=== PATIENT | male | born 1965 | race Caucasian/White ===

== ENCOUNTER 2018-06-01 19:11 | Emergency (ER) | payer SELFPAY ==
[~2018-06-01] VITALS: Ht 193 cm; Wt 122.5 kg
[~2018-06-01 19:11] MED LIST: LISI10TA2 PO; SULF1TAB35 PO
[2018-06-01] MEDS ORDERED: meTOprolol TARTRATE 50 MG (LOPRESSOR) TAB PO ONE (21:15)
--- NOTE | 2018-06-01 21:15 | ED General ---
General Chief Complaint: Cardiac/General Problems Stated Complaint: RASH Source of Information: Patient Exam Limitations: No Limitations History of Present Illness Date Seen by Provider: Jun 01, 2018 Time Seen by Provider: 21:12 Initial Comments To ER with reports of an itchy rash for 2 days to bilateral lower extremities and upper extremity. This rash is from the knees to the ankles. Does not extend proximal or distal to this. He has a bit of itchy linear rash on his abdomen and the dorsal aspect of his forearms. This began 2 days ago after finishing and being out in the brush. However during triage she was noted to be hypertensive at 212/135 and tachycardic sinus rhythm with a rate of 105. He denies any pain. He does report intermittent hematuria as well. He has a history of sepsis from urinary tract infection and is concerned he might be septic given the bloody urine. Timing/Duration: 1-2 Days Severity: Moderate Allergies and Home Medications Allergies Coded Allergies: No Known Drug Allergies (Unverified , 10/02/15) Home Medications Ciprofloxacin HCl 500 Mg Tablet, 500 MG PO BID Prescribed by: HILLARY OCAMPO on 06/01/182217 Lisinopril 10 Mg Tablet, 10 MG PO DAILY, (Reported) Metoprolol Succinate 50 Mg Tab.er.24h, 50 MG PO DAILY Prescribed by: HILLARY OCAMPO on 06/01/182217 Prednisone 20 Mg Tab, 40 MG PO DAILY Take 3 tabs(60mg)daily, decrease by 1/2 tab(10mg)daily. Prescribed by: HILLARY OCAMPO on 06/01/182217 Patient Home Medication List Home Medication List Reviewed: Yes Review of Systems Review of Systems Constitutional: see HPI; No chills, No fever EENTM: see HPI Respiratory: see HPI; No dyspnea on exertion, No short of breath Cardiovascular: no symptoms reported Genitourinary: see HPI, hematuria; No pain Musculoskeletal: no symptoms reported Skin: see HPI Psychiatric/Neurological: No Symptoms Reported Hematologic/Lymphatic: No Symptoms Reported Immunological/Allergic: no symptoms reported Past Jptyaov-Ktqqql-Xzhjlz Hx Past Medical History Hypertension Reproductive Disorders: No Family Medical History No Pertinent Family Hx Physical Exam Vital Signs Vital Signs - First Documented 06/01/18 20:58 Temp 97.2 Pulse 98 Resp 22 B/P (MAP) 222/125 (157) Pulse Ox 97 O2 Delivery Room Air Capillary Refill : Height, Weight, BMI Height: 6'4" Weight: 240lbs. oz. 108.398590qd; BMI Method: General Appearance: No Apparent Distress, WD/WN Eyes: Bilateral Eye Normal Inspection, Bilateral Eye PERRL, Bilateral Eye EOMI HEENT: PERRL/EOMI, TMs Normal Neck: Full Range of Motion, Normal Inspection Respiratory: Normal Breath Sounds, No Accessory Muscle Use, No Respiratory Distress Cardiovascular: Regular Rate, Rhythm, Normal Peripheral Pulses Gastrointestinal: Normal Bowel Sounds, Non Tender, Soft Extremity: Normal Capillary Refill, Other (erythematous linear papular rash to bilateral lower extremities from the knees to the ankles. Not distal or proximal to this. He has a similar appearing rash to the upper arms from the mid upper arm distally and to the abdomen. There is no rash on the face of the back. This does appear to be consistent with poison regina.) Neurologic/Psychiatric: Alert, Oriented x3, No Motor/Sensory Deficits Skin: Normal Color, Warm/Dry Progress/Results/Core Measures Suspected Sepsis SIRS Temperature: Pulse: Respiratory Rate: Laboratory Tests 06/01/18 21:02: White Blood Count 6.6 Blood Pressure / Mean: Laboratory Tests 06/01/18 21:02: Creatinine 1.02, Platelet Count 273, Total Bilirubin 0.4 Results/Orders Lab Results Laboratory Tests Test 06/01/18 21:02 06/01/18 21:35 Range/Units White Blood Count 6.6 4.3-11.0 10^3/uL Red Blood Count 4.82 4.35-5.85 10^6/uL Hemoglobin 14.4 13.3-17.7 G/DL Hematocrit 43 40-54 % Mean Corpuscular Volume 88 80-99 FL Mean Corpuscular Hemoglobin 30 25-34 PG Mean Corpuscular Hemoglobin Concent 34 32-36 G/DL Red Cell Distribution Width 14.2 10.0-14.5 % Platelet Count 273 130-400 10^3/uL Mean Platelet Volume 9.6 7.4-10.4 FL Neutrophils (%) (Auto) 47 42-75 % Lymphocytes (%) (Auto) 29 12-44 % Monocytes (%) (Auto) 15 H 0-12 % Eosinophils (%) (Auto) 8 0-10 % Basophils (%) (Auto) 1 0-10 % Neutrophils # (Auto) 3.1 1.8-7.8 X 10^3 Lymphocytes # (Auto) 1.9 1.0-4.0 X 10^3 Monocytes # (Auto) 1.0 0.0-1.0 X 10^3 Eosinophils # (Auto) 0.5 H 0.0-0.3 10^3/uL Basophils # (Auto) 0.1 0.0-0.1 10^3/uL Sodium Level 139 135-145 MMOL/L Potassium Level 3.3 L 3.6-5.0 MMOL/L Chloride Level 107 98-107 MMOL/L Carbon Dioxide Level 21 21-32 MMOL/L Anion Gap 11 5-14 MMOL/L Blood Urea Nitrogen 16 7-18 MG/DL Creatinine 1.02 0.60-1.30 MG/DL Estimat Glomerular Filtration Rate > 60 BUN/Creatinine Ratio 16 Glucose Level 88 70-105 MG/DL Calcium Level 9.6 8.5-10.1 MG/DL Corrected Calcium 9.5 8.5-10.1 MG/DL Total Bilirubin 0.4 0.1-1.0 MG/DL Aspartate Amino Transf (AST/SGOT) 50 H 5-34 U/L Alanine Aminotransferase (ALT/SGPT) 72 H 0-55 U/L Alkaline Phosphatase 74 40-136 U/L Troponin I < 0.30 <0.30 NG/ML B-Type Natriuretic Peptide 57.3 <100.0 PG/ML Total Protein 7.9 6.4-8.2 GM/DL Albumin 4.1 3.2-4.5 GM/DL Urine Color OTHER H Urine Clarity VERY CLOUDY H Urine pH 6 5-9 Urine Specific [place] 1.015 L 1.016-1.022 Urine Protein 3+ H NEGATIVE Urine Glucose (UA) NEGATIVE NEGATIVE Urine Ketones NEGATIVE NEGATIVE Urine Nitrite NEGATIVE NEGATIVE Urine Bilirubin NEGATIVE NEGATIVE Urine Urobilinogen NORMAL NORMAL MG/DL Urine Leukocyte Esterase 3+ H NEGATIVE Urine RBC (Auto) 5+ H NEGATIVE Urine RBC TNTC H /HPF Urine WBC TNTC H /HPF Urine Crystals NONE /LPF Urine Bacteria FEW H /HPF Urine Casts NONE /LPF Urine Mucus NEGATIVE /LPF Urine Culture Indicated YES My Orders Orders - HILLARY OCAMPO CLINICAL OPERATIONS CONSULTANT Cbc With Automated Diff (06/01/18 21:04) Comprehensive Metabolic Panel (06/01/18 21:04) BNP (06/01/18 21:04) Troponin I (06/01/18 21:04) Ekg Tracing (06/01/18 21:04) Iv Heplock-Insert (Order) (06/01/18 21:04) Metoprolol Tartrate (Ir) Tab (Lopressor (06/01/18 21:15) Chest 1 View, Ap/Pa Only (06/01/18 21:07) Metoprolol Tartrate (Ir) Tab (Lopressor (06/01/18 21:45) Metoprolol Tartrate (Ir) Tab (Lopressor (06/01/18 21:29) Ua Culture If Indicated (06/01/18 21:45) Urine Culture (06/01/18 21:35) Ceftriaxone For Iv Use (Rocephin For I (06/01/18 22:15) Medications Given in ED Current Medications Medications Dose Ordered Sig/Rolan Route Start Time Stop Time Status Last Admin Dose Admin Ceftriaxone Sodium 1000 mg/ Sodium Chloride 50 ml @ 100 mls/hr ONCE ONCE IV 06/01/18 22:15 06/01/18 22:44 06/01/18 22:29 100 MLS/HR Metoprolol Tartrate 50 mg ONCE ONCE PO 06/01/18 21:45 06/01/18 21:46 DC 06/01/18 21:34 50 MG Vital Signs/I&O 06/01/18 20:58 Temp 97.2 Pulse 98 Resp 22 B/P (MAP) 222/125 (157) Pulse Ox 97 O2 Delivery Room Air Capillary Refill : Departure Impression Primary Impression: Hypertension Additional Impressions: Poison regina Urinary tract infection Disposition: 01 HOME, SELF-CARE Condition: Stable Departure-Patient Inst. Decision time for Depature: 22:16 Referrals: NO,LOCAL PHYSICIAN (PCP/Family) Primary Care Physician Patient Instructions: High Blood Pressure (DC), Poison Regnia, Urinary Tract Infection, Adult (DC) Add. Discharge Instructions: 1. Return to ER for any shortness of breath chest pain fevers or other concerns. Take the antibiotics as directed starting tomorrow. Take the steroids as directed starting tomorrow for the poison regina and take blood pressure medication. Scripts Ciprofloxacin HCl (Cipro) 500 Mg Tablet 500 MG PO BID, #14 TAB Prov: HILLARY OCAMPO APRN 8/31/18 Prednisone (Prednisone) 20 Mg Tab 40 MG PO DAILY, #10 TAB Take 3 tabs(60mg)daily, decrease by 1/2 tab(10mg)daily. Prov: HILLARY OCAMPO APRN 06/01/18 Metoprolol Succinate (Toprol Xl) 50 Mg Tab.er.24h 50 MG PO DAILY, #20 TAB Prov: HILLARY OCAMPO APRN 06/01/18 HILLARY OCAMPO APRN Jun 01, 2018 21:15
[2018-06-01 21:16] LABS: BASOPHILS # (AUTO) 0.1 10^3/uL (0.0-0.1); BASOPHILS % (AUTO) 1 % (0-10); EOSINOPHILS # (AUTO) 0.5 10^3/uL (0.0-0.3); EOSINOPHILS % (AUTO) 8 % (0-10); HEMATOCRIT 43 % (40-54); HEMOGLOBIN 14.4 G/DL (13.3-17.7); LYMPHOCYTES # (AUTO) 1.9 X 10^3 (1.0-4.0); LYMPHOCYTES % (AUTO) 29 % (12-44); MEAN CORPUSCULAR HEMOGLOBIN 30 PG (25-34); MEAN CORPUSCULAR HGB CONC 34 G/DL (32-36); MEAN CORPUSCULAR VOLUME 88 FL (80-99); MEAN PLATELET VOLUME 9.6 FL (7.4-10.4); MONOCYTES % (AUTO) 15 % (0-12); NEUTROPHILS # (AUTO) 3.1 X 10^3 (1.8-7.8); NEUTROPHILS % (AUTO) 47 % (42-75); PLATELET COUNT 273 10^3/uL (130-400); RED BLOOD COUNT 4.82 10^6/uL (4.35-5.85); RED CELL DISTRIBUTION WIDTH 14.2 % (10.0-14.5); WHITE BLOOD COUNT 6.6 10^3/uL (4.3-11.0)
[2018-06-01 21:32] LABS: ALANINE AMINOTRANSFERASE 72 U/L (0-55); ALBUMIN 4.1 GM/DL (3.2-4.5); ALKALINE PHOSPHATASE 74 U/L (40-136); BILIRUBIN,TOTAL 0.4 MG/DL (0.1-1.0); BUN/CREATININE RATIO 16; CALCIUM 9.6 MG/DL (8.5-10.1); CARBON DIOXIDE 21 MMOL/L (21-32); CHLORIDE 107 MMOL/L (98-107); CREATININE SERUM 1.02 MG/DL (0.60-1.30); GFR ESTIMATED > 60; GLUCOSE 88 MG/DL (70-105); POTASSIUM 3.3 MMOL/L (3.6-5.0); SODIUM 139 MMOL/L (135-145); TOTAL PROTEIN 7.9 GM/DL (6.4-8.2)
[2018-06-01] MEDS: meTOprolol TARTRATE 25 MG (LOPRESSOR) TABLET PO ONE (21:34)
--- NOTE | 2018-06-01 21:40 | Diagnostic Imaging Report ---
EXAM: CHEST 1 VIEW, AP/PA ONLY INDICATION: Hypertension. COMPARISON: None FINDINGS: Normal heart size and central pulmonary vascularity. No focal pulmonary opacity, pleural effusion or pneumothorax. No acute osseous findings. IMPRESSION: No acute cardiopulmonary findings. Dictated by: Dictated on workstation # [id number]
[2018-06-01] MEDS: meTOprolol TARTRATE 25 MG (LOPRESSOR) TABLET ONE (21:43)
[2018-06-01 21:49] LABS: BILIRUBIN,URINE NEGATIVE (NEGATIVE); CLARITY,URINE VERY CLOUDY; COLOR,URINE OTHER; GLUCOSE, URINE (UA) NEGATIVE (NEGATIVE); KETONES,URINE NEGATIVE (NEGATIVE); LEUKOCYTE ESTERASE ,URINE 3+ (NEGATIVE); NITRITE,URINE NEGATIVE (NEGATIVE); PH,URINE 6 (5-9); PROTEIN,URINE 3+ (NEGATIVE); UROBILINOGEN,URINE NORMAL (NORMAL)
[2018-06-01 21:55] LABS: BACTERIA,URINE FEW /HPF; RBC,URINE TNTC /HPF; WBC,URINE TNTC /HPF
[2018-06-01] MEDS ORDERED: PRD20T PO (22:18)
[2018-06-01] MEDS ORDERED: CIPR-225 PO (22:18)
[2018-06-01] MEDS ORDERED: METO-352 PO (22:18)
[2018-06-01] MEDS: cefTRIAXone FOR IV USE 1,000 MG in NS (IVPB) 50 ML IV ONE (22:29)
[2018-06-01 22:53] VITALS: BP 174/123
--- OUTSIDE RECORDS SUMMARY | 2018-06-02 04:32 | XMS REPORT ---
Author Festus Boo [facility] eClinicalWorks Address Unknown Phone Unavailable Care Team Providers Care Sewage Disposal Engineer Name Role Phone Festus Kathleen CP Unavailable Allergies No Known Allergies Problems No Known Problems Medications Medication Code System Code Instructions Start Date End Date Status Dosage Amitriptyline HCl [facility] [address]-33 50 MG Orally Once a day January 20, 2015 1 tablet at bedtime Results No Known Results Summary Purpose eClinicalWorks Submission
--- OUTSIDE RECORDS SUMMARY | 2018-06-02 04:32 | XMS REPORT | Clinical Summary ---
Author Author [facility] Organization [facility] Address Unknown Phone Unavailable Care Team Providers Care Perl Programmer Name Role Phone PP Unavailable Allergies No Known Allergies Current Medications Prescription Sig. Disp. Refills Start End Date Status Date hydrocodone-acetaminophen Take 1-2 tablets by mouth 30 tablet 0 Active (NORCO) 5-325 MG every 4 (four) hours as 16 needed for Moderate Pain. Do not exceed a daily dose of 12 tablets Active Problems Problem Noted Date Hypokalemia 12/15/2015 Neck infection 12/13/2015 Odontogenic infection 12/13/2015 Elevated LFTs 12/13/2015 LVH (left ventricular hypertrophy) 12/13/2015 Essential hypertension 12/13/2015 Social History Tobacco Use Types Packs/Day Years Used Date Never Smoker Alcohol Use Drinks/Week oz/Week Comments No Sex Assigned at Date Recorded Not on file Last Filed Vital Signs Vital Sign Reading Time Taken Blood Pressure 160/100 12/23/2015 12:01 AM CDT Pulse 96 12/21/2015 11:11 AM CDT Temperature 36.5 C (97.7 F) 12/21/2015 11:11 AM CDT Respiratory Rate 20 12/21/2015 11:11 AM CDT Oxygen Saturation 97% 12/16/2015 10:30 AM CDT Inhaled Oxygen - - Concentration Weight 118.8 kg (262 lb) 12/23/2015 12:01 AM CDT Height 188 cm (6' 2") 12/23/2015 12:01 AM CDT Body Mass Index 33.64 12/23/2015 12:01 AM CDT Plan of Treatment Health Maintenance Due Date Last Done Comments DTaP,Tdap,and Td Vaccines 1986 (1 - Tdap) Colon Cancer Screening 2017 Zoster Recombinant 2017 Vaccine (RZV,Shingrix) (1 of 2 - SVH 2 Dose Standard) Results Not on filefrom Last 3 Months
--- OUTSIDE RECORDS SUMMARY | 2018-06-02 04:32 | XMS REPORT ---
Author Author ANIVAL WHITE Organization [facility] Address [address] [place] [address] Care Team Providers Care Right Of Way Man Name Role Phone ANIVAL WHITE Unavailable PROBLEMS Type Condition ICD9-CM Code UND13-TH Code Onset Dates Condition Status SNOMED Code Problem Amphetamine use disorder, moderate F15.20 Active 14399407 Problem Other insomnia G47.09 Active 637545825 Problem Essential hypertension I10 Active 78132150 ALLERGIES No Information ENCOUNTERS Encounter Location Date Diagnosis [address] [id number] January, Dysuria R30.0 and Acute cystitis with hematuria N30.[address] [id number] Nov, Mouth pain K13.79 ; Dental infection K04.7 and Essential hypertension I10 [address] [id number] Aug, Dysuria R30.0 [place] [id number] [place] [id number] Aug, [address] [id number] Aug, Dysuria R30.0 ; Elevated blood pressure reading R03.0 ; Essential hypertension I10 ; History of illicit drug use Z87.898 and Amphetamine use disorder, moderate F15.20 [place] [id number] [place] [id number] May, Acute cystitis with hematuria N30.01 and Other insomnia G47.09 [place] [id number] [place] [id number] May, Dysuria R30.0 ; Urinary frequency R35.0 ; Acute cystitis with hematuria N30.01 and Essential hypertension I10 [facility] [address] [facility] [id number] [id number] 28 Aug, 2016 Sore throat J02.9 ; Essential hypertension I10 ; Urinary tract infection, site not specified N39.0 and Hematuria, unspecified R31.9 [facility] [id number] [address] 14 Dec, 2014 [facility] [address] [address] Dec, [facility] [id number], [place] [address] Aug, [facility] [address], [place] [address] Aug, [facility] [address], [place] [address] Jun, [facility] [address], [place] [address] January, [facility] [address], [place] [address] January, [facility] [address], [place] [address] Dec, [facility] [id number], [place] [address] Nov, [facility] [address], [place] [address] Oct, [facility] [id number], [place] [address] Sep, [facility] [address], [place] [address] Sep, [facility] [id number], [place] [address] Sep, [facility] [address] [id number] [address] Sep, [facility] [place] [facility] [address] [id number] [place] [address] Aug, [facility] [place] [facility] [address] [id number], [place] [address] Aug, [facility] [place] [facility] [address] [id number], [place] [address] Aug, [facility] [place] [facility] [address] [id number], [place] [address] Aug, [facility] [place] [facility] [address] [id number] [place] [address] Aug, [facility] [place] [facility] [address] [facility] [id number], [place] [address] Jul, [facility] [place] [facility] [address] [id number], [place] [address] Jul, [facility] [id number] [id number] Jun, [facility] [place] [facility] [address] [id number], [place] [address] Jun, [facility] [place] [facility] [address] [facility] [id number], [place] [address] May, [facility] [place] [facility] [address] [id number], [place] [address] May, [facility] [place] [facility] [address] [facility] [id number], [place] [address] May, [facility] [place] [facility] [address] [id number], [place] [address] Apr, [facility] [place] [facility] [address] [facility] [id number], [place] [address] Mar, [facility] [address] [facility] [id number] [id number] Mar, [facility] [place] [facility] [address] [facility] [id number], [place] [address] January, [facility] [address] [facility] [id number], [place] [address] January, [facility] [place] [facility] [address] [facility] [id number], [place] [address] January, [facility] [address] [facility] [id number], [place] [address] Dec, [facility] [place] [facility] [address] [facility] [id number], [place] [address] Nov, [facility] [address] [facility] [id number], [place] [address] Nov, [facility] [address] [id number][place] [id number] Nov, [facility] [address] [id number][place] [id number] Nov, [facility] [address] [facility] [id number][place] [id number] Nov, [facility] [address] [facility] [id number], [place] [address] Oct, [facility] [place] [facility] [address] [facility] [id number], [place] [address] Oct, [facility] [address] [id number] [id number] Oct, [facility] [place] [facility] [address] [facility] [id number], [place] [address] Jul, [facility] [place] [facility] [address] [facility] [id number], [place] [address] Jul, [facility] [place] [facility] [address] [facility] [id number], [place] [address] Sep, [facility] [place] [facility] [address] [facility] [id number], [place] [address] Sep, [facility] [place] [facility] [address] [facility] [id number], [place] [address] Sep, [facility] [address], [place] [address] Sep, [facility] [address], [place] [address] Aug, [facility] [address], [place] [address] Aug, [facility] [address], [place] [address] Aug, [facility] [address], [place] [address] Aug, [facility] [address], [place] [address] Jul, [facility] [id number] [place] [address] January, [facility] [address], [place] [address] Sep, [facility] [address], [place] [address] Aug, [facility] [id number], [place] [address] Mar, IMMUNIZATIONS No Known Immunizations SOCIAL HISTORY Never Assessed REASON FOR VISIT work note PLAN OF CARE VITAL SIGNS MEDICATIONS Unknown Medications RESULTS No Results PROCEDURES No Known procedures INSTRUCTIONS MEDICATIONS ADMINISTERED No Known Medications MEDICAL (GENERAL) HISTORY Type Description Date Medical History kidney stones Medical History Generalized anxiety disorder Medical History Amphetamine and other psychostimulant dependence, unspecified abuse Medical History Cellulitis and abscess of upper arm and forearm Medical History Lumbago Hospitalization History sepsis 2013
--- OUTSIDE RECORDS SUMMARY | 2018-06-02 04:32 | XMS REPORT ---
Author Festus Boo [facility] eClinicalWorks Address Unknown Phone Unavailable Care Team Providers Care Morning Caregiver Name Role Phone Festus Kathleen CP Unavailable Allergies No Known Allergies Problems No Known Problems Medications Medication Code System Code Instructions Start Date End Date Status Dosage Amitriptyline HCl [facility] [address]-88 50 MG Orally Once a day January 20, 2015 1 tablet at bedtime Results No Known Results Summary Purpose eClinicalWorks Submission
--- OUTSIDE RECORDS SUMMARY | 2018-06-02 04:32 | XMS REPORT ---
Author Author Festus Kathleen [facility] eClinicalWorks Address Unknown Phone Unavailable Care Team Providers Care Margin Clerk Name Role Phone Festus Kathleen CP Unavailable Allergies No Known Allergies Problems No Known Problems Medications No Known Medications Results No Known Results Summary Purpose eClinicalWorks Submission
--- OUTSIDE RECORDS SUMMARY | 2018-06-02 04:32 | XMS REPORT ---
Author Author Festus Kathleen [facility] eClinicalWorks Address Unknown Phone Unavailable Care Team Providers Care Outside Plant Field Engineer Name Role Phone Festus Kathleen CP Unavailable Allergies No Known Allergies Problems No Known Problems Medications No Known Medications Results No Known Results Summary Purpose eClinicalWorks Submission
--- OUTSIDE RECORDS SUMMARY | 2018-06-02 04:33 | XMS REPORT ---
Author Author Festus Kathleen [facility] eClinicalWorks Address Unknown Phone Unavailable Care Team Providers Care Mac Artist Name Role Phone Festus Kathleen CP Unavailable Allergies No Known Allergies Problems No Known Problems Medications No Known Medications Results No Known Results Summary Purpose eClinicalWorks Submission
--- OUTSIDE RECORDS SUMMARY | 2018-06-02 04:33 | XMS REPORT ---
Author Author LUIGI VALENTINE [facility] Address [address] [place] [address] Care Team Providers Care Curtain Mender Name Role Phone LUIGI VALENTINE Unavailable PROBLEMS Type Condition ICD9-CM Code UOR49-ID Code Onset Dates Condition Status SNOMED Code Problem Amphetamine use disorder, moderate F15.20 Active 09590428 Problem Other insomnia G47.09 Active 403917424 Problem Essential hypertension I10 Active 55437785 ALLERGIES No Known Allergies ENCOUNTERS Encounter Location Date Diagnosis [address] [id number] January, Dysuria R30.0 and Acute cystitis with hematuria N30.[address] [id number] Nov, Mouth pain K13.79 ; Dental infection K04.7 and Essential hypertension I10 [address] [id number] Aug, Dysuria R30.[address] [id number] Aug, [address] [id number] Aug, Dysuria R30.0 ; Elevated blood pressure reading R03.0 ; Essential hypertension I10 ; History of illicit drug use Z87.898 and Amphetamine use disorder, moderate F15.[address] [id number] May, Acute cystitis with hematuria N30.01 and Other insomnia G47.[address] [id number] May, Dysuria R30.0 ; Urinary frequency R35.0 ; Acute cystitis with hematuria N30.01 and Essential hypertension I10 [address] [id number][place] [id number] 28 Aug, 2016 Sore throat J02.9 ; Essential hypertension I10 ; Urinary tract infection, site not specified N39.0 and Hematuria, unspecified R31.9 [facility] [address] [facility] [id number] [place] [address] 14 Dec, 2014 [facility] [address] [id number] [place] [address] Dec, [facility] [address] [facility] [id number] [place] [address] 14 Aug, 2013 [facility] [address] [place] [address] Aug, [facility] [address] [id number] [place] [address] Jun, [facility] [address] [place] [address] January, [facility] [address] [id number] [address] January, [facility] [address] [id number] [place] [address] 18[address] Dec, [facility] [address] [id number] [address] 6[address] Nov, [facility] [address] [id number] [address] Oct, [facility] [address] [id number] [address] Sep, [facility] [address] [id number], [place] [address] Sep, [facility] [address] [id number] [address] Sep, [facility] [address] [id number], [place] [address] Sep, [facility] [place] [facility] [address] [id number] [place] [address] Aug, [facility] [place] [facility] [address] [id number] [place] [address]- [address]66 Aug, [facility] [place] [facility] [address] [id number] [place] [address]- 25[address] Aug, [facility] [place] [facility] [address] [id number] [place] [address]- 5656 Aug, [facility] [place] [facility] [address] [id number] [place] [address] Aug, [facility] [place] [facility] [address] [id number] [place] [address]- 2266 Jul, [facility] [place] [facility] [address] [id number] [place] [address]- 2846 Jul, [facility] [address] [facility] [id number][place] [id number] Jun, [facility] [place] [facility] [address] [id number] [place] [address]- 4[address] Jun, [facility] [place] [facility] [address] [facility] [id number], [place] [address] May, [facility] [place] [facility] [address] [id number] [place] [address]- 3[address] May, [facility] [place] [facility] [address] [id number], [place] [address] 5[address] May, [facility] [place] [facility] [address] [id number] [place] [address]- 0846 Apr, [facility] [place] [facility] [address] [id number] [place] [address]- 2546 Mar, [facility] [address] [facility] [id number][place] [address] Mar, [facility] [place] [facility] [address] [id number], [place] [address] January, [facility] [address] [facility] [id number] [place] [address]- 2915 January, [facility] [place] [facility] [address] [facility] [id number] [place] [address]- 59[address] January, [facility] [address] [facility] [id number] [place] [address]- 5796 Dec, [facility] [address] [facility] [id number], [place] [address] Nov, [facility] [address] [facility] [id number] [place] [address]- 3716 Nov, [facility] [address] [id number][place] [id number] Nov, [facility] [address] [id number] [place] [id number] Nov, [facility] [address] [id number] [place] [id number] Nov, [facility] [address] [facility] [id number], [place] [address] 7[address] Oct, [facility] [address] [facility] [id number], [place] [address]- 9736 Oct, [facility] [address] [id number][place] [id number] Oct, [facility] [place] [facility] [address] [facility] [id number], [place] [address]- [address] Jul, [facility] [place] [facility] [address] [facility] [id number], [place] [address]- 2546 Jul, [facility] [place] [facility] [address] [facility] [id number] [place] [address]- 5516 Sep, [facility] [place] [facility] [address] [facility] [id number] [place] [address]- 2546 Sep, [facility] [place] [facility] [address] [facility] [id number] [place] [address]- 79[address] Sep, [facility] [address] [id number], [place] [address]- [address] Sep, [facility] [address]65100[place] [address] Aug, [facility] [address]65[address], [place] [address]- 3[address] Aug, [facility] [address]65[address], [place] [address]- [address] Aug, [facility] [address]65[address] [address] Aug, [facility] [address]65[address] [address] Jul, [facility] [address]00565100[place], [place] [address]- 0[address] January, [facility] [address]65[address] [address] Sep, [facility] [address], [place] [address]- 98[address] Aug, [facility] [address] [id number] Mar, IMMUNIZATIONS No Known Immunizations SOCIAL HISTORY Never Assessed REASON FOR VISIT Blood in urine Joni MONTENEGRO PLAN OF CARE Activity Details Follow Up 2 Weeks Reason:jesusita ua tics VITAL SIGNS Height 76 in 2018-02-06 Weight 270.8 lbs 2018-02-06 Temperature 97.7 degrees Fahrenheit 2018-02-06 Heart Rate 78 bpm 2018-02-06 Respiratory Rate 18 2018-02-06 BMI 32.96 kg/m2 2018-02-06 Blood pressure systolic 142 mmHg 2018-02-06 Blood pressure diastolic 78 mmHg 2018-02-06 MEDICATIONS Medication Instructions Dosage Frequency Start Date End Date Duration Status Amitriptyline HCl 25 MG Orally Once a day .5-1 tablet 24h May, Not-Taking Lisinopril 20 mg Orally Once a day 1 tablet 24h Nov, 0 days Active Nitrofurantoin Monohyd Macro 100 mg Orally every 12 hrs 1 capsule with food 12h January, January, 10 days Active RESULTS Name Result Date Reference Range UA LONG DIP (IN HOUSE) 2018-02-06 Lot # [id number] Exp date 01/29/19 Clarity turbid Color yellow Odor yes GLU neg AKSHAT neg KET neg SG >=1.030 BLO 3+ pH 6.0 Protein 2+ URO 0.2 NIT neg EDIE 3+ Lot # Exp date PROCEDURES Procedure Date Ordered Result Body Site URINALYSIS, AUTO, W/O SCOPE February 06, 2018 INSTRUCTIONS MEDICATIONS ADMINISTERED No Known Medications MEDICAL (GENERAL) HISTORY Type Description Date Medical History kidney stones Medical History Generalized anxiety disorder Medical History Amphetamine and other psychostimulant dependence, unspecified abuse Medical History Cellulitis and abscess of upper arm and forearm Medical History Lumbago Hospitalization History sepsis 2013
--- OUTSIDE RECORDS SUMMARY | 2018-06-02 04:33 | XMS REPORT ---
Author Festus Boo [facility] eClinicalWorks Address Unknown Phone Unavailable Care Team Providers Care Steward/Stewardess Lounge Name Role Phone Festus Kathleen CP Unavailable Allergies No Known Allergies Problems Problem Type Condition Code Onset Dates Condition Status Assessment Priapism 607.3 Active Assessment Insomnia 780.52 Active Medications Medication Code System Code Instructions Start Date End Date Status Dosage Amitriptyline HCl [facility] [address]-51 25 MG Orally Once a day January 20, 2015 1 tablet at bedtime Results No Known Results Summary Purpose eClinicalWorks Submission
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
--- OUTSIDE RECORDS SUMMARY | 2018-06-02 04:33 | XMS REPORT ---
Author Author ANIVAL WHITE Organization [facility] Address [address] [place] [address] Care Team Providers Care Contract Accountant Name Role Phone ANIVAL WHITE Unavailable PROBLEMS Type Condition ICD9-CM Code PMX82-RF Code Onset Dates Condition Status SNOMED Code Problem Amphetamine use disorder, moderate F15.20 Active 74932191 Problem Other insomnia G47.09 Active 137583863 Problem Essential hypertension I10 Active 59065698 ALLERGIES No Known Allergies ENCOUNTERS Encounter Location Date Diagnosis [address] [id number] January, Dysuria R30.0 and Acute cystitis with hematuria N30.[address] [id number] Nov, Mouth pain K13.79 ; Dental infection K04.7 and Essential hypertension I10 [address] [id number] Aug, Dysuria R30.0 [id number] [place] [id number] Aug, [address] [id number] Aug, Dysuria R30.0 ; Elevated blood pressure reading R03.0 ; Essential hypertension I10 ; History of illicit drug use Z87.898 and Amphetamine use disorder, moderate F15.20 [id number] [place] [id number] May, Acute cystitis with hematuria N30.01 and Other insomnia G47.09 [address] [place] [address] [id number] May, Dysuria R30.0 ; Urinary frequency R35.0 ; Acute cystitis with hematuria N30.01 and Essential hypertension I10 [facility] [address] [facility] [id number] [id number] 28 Aug, 2016 Sore throat J02.9 ; Essential hypertension I10 ; Urinary tract infection, site not specified N39.0 and Hematuria, unspecified R31.9 [facility] [address] [id number], [place] [address] 14 Dec, 2014 [facility] [address] [id number], [place] [address] Dec, [facility] [address]005[address], [place] [address]- 77[address] Aug, [facility] [address]005[address]100[place], [place] [address]- 8690 Aug, [facility] [address]100[place], [place] [address]- 2592 Jun, [facility] [address], [place] [address]- 5281 January, [facility] [address]005[address], [place] [address]- 6930 January, [facility] [address]00565100[place], [place] [address]- 3826 Dec, [facility] [address] [id number], [place] [address]- 1599 Nov, [facility] [address]00565100[place], [place] [address]- 9690 Oct, [facility] [address] [id number], [place] [address]- 5866 Sep, [facility] [address] 1512 Sep, [facility] [address] [id number], [place] [address]- 5080 Sep, [facility] [address] [id number], [place] [address] 3229 Sep, [facility] [place] [facility] [address] [id number] [place] [address]- 5995 Aug, [facility] [place] [facility] [address] [id number], [place] [address]- 8701 Aug, [facility] [place] [facility] [address] [id number], [place] [address]- 2610 Aug, [facility] [place] [facility] [address] [id number], [place] [address]- 7484 Aug, [facility] [place] [facility] [address] [id number] [place] [address]- 2503 Aug, [facility] [place] [facility] [address] [facility] [id number] [place] [address]- 5429 Jul, [facility] [place] [facility] [address] [facility] [id number], [place] [address]- 6843 Jul, [facility] [id number] [address] Jun, [facility] [place] [facility] [address] [id number], [place] [address]- 6889 Jun, [facility] [place] [facility] [address] [facility] [id number], [place] [address]- 5300 May, [facility] [place] [facility] [address] [id number], [place] [address]- 1546 May, [facility] [place] [facility] [address] [facility] [id number], [place] [address]- 5772 May, [facility] [place] [facility] [address] [id number], [place] [address]- 3276 Apr, [facility] [place] [facility] [address] [facility] [id number], [place] [address]- 6[address] Mar, [facility] [address] [facility] [id number][place] [address] Mar, [facility] [place] [facility] [address] [id number], [place] [address]- 4236 January, [facility] [address] [id number], [place] [address]- 5536 January, [facility] [place] [facility] [address] [facility] [id number], [place] [address] 2546 January, [facility] [address] [facility] [id number], [place] [address]- 0046 Dec, [facility] [place] [facility] [address] [facility] [id number], [place] [address]- 6746 Nov, [facility] [address] [facility] [id number], [place] [address]- 1408 Nov, [facility] [address] [facility] [id number][place] [address] Nov, [facility] [address] [id number][place] [address] Nov, [facility] [address] [facility] [id number][place] [address] Nov, [facility] [address] [facility] [id number], [place] [address]- 9166 Oct, [facility] [place] [facility] [address] [facility] [id number], [place] [address]- 1176 Oct, [facility] [address] [facility] [id number][place] [address] Oct, [facility] [place] [facility] [address] [facility] [id number], [place] [address]- 9554 Jul, [facility] [place] [facility] [address] [facility] [id number], [place] [address]- 3012 Jul, [facility] [place] [facility] [address] [facility] [id number], [place] [address]- 9626 Sep, [facility] [place] [facility] [address] [facility] [id number], [place] [address]- 3306 Sep, [facility] [place] [facility] [address] [facility] [id number], [place] [address]- 5341 Sep, [facility] [address]00565100[place], [place] [address]- 3545 Sep, [facility] [address] [place] [address]- 9891 Aug, [facility] [id number] [place] [address]- 6723 Aug, [facility] [id number] [place] [address]- 4054 Aug, [facility] [id number] [place] [address] 790974- 6547 Aug, [facility] [id number] [place] [address]- 2929 Jul, [facility] [id number] [place] [address]- 5737 January, [facility] [id number] [place] [address]- 3101 Sep, [facility] [id number] [place] [address]- 1648 Aug, [facility] [address] [place] [address]- 0348 Mar, IMMUNIZATIONS No Known Immunizations SOCIAL HISTORY Never Assessed REASON FOR VISIT Pain (acute) (mouth) upper right molar for the past week---LAN prieto PLAN OF CARE Activity Details Follow Up needs appt with Anders for HTN, needs to get into Dental in 1 week. Reason: VITAL SIGNS Height 76 in 2017-12-18 Weight 290.2 lbs 2017-12-18 Temperature 97.1 degrees Fahrenheit 2017-12-18 Heart Rate 75 bpm 2017-12-18 Respiratory Rate 16 2017-12-18 BMI 35.32 kg/m2 2017-12-18 Blood pressure systolic 166 mmHg 2017-12-18 Blood pressure diastolic 102 mmHg 2017-12-18 MEDICATIONS Medication Instructions Dosage Frequency Start Date End Date Duration Status Amitriptyline HCl 25 MG Orally Once a day .5-1 tablet 24h May, Active Lisinopril 20 mg Orally Once a day 1 tablet 24h Nov, 0 days Active Amoxicillin 500 mg Orally every 8 hrs 1 tablet 8h Nov, Nov, 07 days Active RESULTS No Results PROCEDURES No Known procedures INSTRUCTIONS MEDICATIONS ADMINISTERED No Known Medications MEDICAL (GENERAL) HISTORY Type Description Date Medical History kidney stones Medical History Generalized anxiety disorder Medical History Amphetamine and other psychostimulant dependence, unspecified abuse Medical History Cellulitis and abscess of upper arm and forearm Medical History Lumbago Hospitalization History sepsis 2013
--- OUTSIDE RECORDS SUMMARY | 2018-06-02 04:33 | XMS REPORT ---
Author Festus Boo [facility] eClinicalWorks Address Unknown Phone Unavailable Care Team Providers Care Metal Crafts Teacher Name Role Phone Festus Kathleen CP Unavailable Allergies No Known Allergies Problems No Known Problems Medications Medication Code System Code Instructions Start Date End Date Status Dosage Amitriptyline HCl [facility] [address]-35 25 MG Orally Once a day January 20, 2015 two tablets at bedtime Results No Known Results Summary Purpose eClinicalWorks Submission
--- OUTSIDE RECORDS SUMMARY | 2018-06-02 04:33 | XMS REPORT ---
Author Festus Boo [facility] eClinicalWorks Address Unknown Phone Unavailable Care Team Providers Care Corporate Tax Manager Name Role Phone Festus Kathleen CP Unavailable Allergies, Adverse Reactions, Alerts Substance Reaction Event Type N.K.D.A. Info Not Available Non Drug Allergy Problems Problem Type Condition Code Onset Dates Condition Status Assessment Insomnia 780.52 Active Assessment Elevated BP 796.2 Active Assessment UTI (lower urinary tract infection) 599.0 Active Medications Medication Code System Code Instructions Start Date End Date Status Dosage Trazodone HCl [facility] [address]-70 150mg Orally once a day 1 tablet Cipro [facility] [address]-90 500 MG Orally Twice a day January 16, 2015 1 tablet Procedures Procedure Coding System Code Date Office Visit Est Pt Level 4 CPT-4 98881 January 16, 2015 URINALYSIS, AUTO, W/O SCOPE CPT-4 71158 January 16, 2015 Vital Signs Date/Time: January 16, 2015 Blood Pressure Systolic 180 mm Hg Cardiac Monitoring Heart Rate 90 /min Temperature 97.9 F BMI 30.12 Index Weight 241 lbs Height 75 in Blood Pressure Diastolic 110 mm Hg Respiratory Rate 18 /min Results No Known Results Summary Purpose eClinicalWorks Submission
--- OUTSIDE RECORDS SUMMARY | 2018-06-02 04:33 | XMS REPORT | Continuity of Care Document ---
Author Author [facility] Address Unknown Phone Unavailable Allergies Active Description Code Type Severity Reaction Onset Reported/Identified Relationship to Patient Clinical Status Yes NKA Drug N/A N/A Yes No Known Drug Allergies [id number] Drug Allergy Unknown N/A 10/02/2015 Medications Medication Packaging Start Date Stop Date Route Dosage Sig SODIUM CHLORIDE 0.9 % IV BOLUS 12/14/2015 Intravenous 1000 BOLUS IOHEXOL 350 MG/ML IV SOLN 2015 Intravenous 100 ONCE SODIUM CHLORIDE 0.9 % IV BOLUS 12/14/2015 Intravenous 1000 BOLUS SODIUM CHLORIDE 0.9 % IV SOLN Intravenous CONTINUOUS CEFAZOLIN SODIUM-DEXTROSE 2-3 GM-% IV SOLR 12/14/2015 Intravenous 2 EVERY 8 HOURS SCHEDULED POTASSIUM CHLORIDE 20 MEQ/15ML (10%) PO SOLN 12/15/2015 Oral 20 DAILY Problems Date Dx Coded Attending Type Code Diagnosis Diagnosed By 10/29/2008 CHADD MANUEL DO 682.9 SUBCUTANEOUS ABSCESS 10/29/2008 CHADD MANUEL DO 682.9 SUBCUTANEOUS ABSCESS 10/29/2008 CHADD MANUEL DO 682.9 SUBCUTANEOUS ABSCESS 12/18/2008 CHADD MANUEL DO 300.00 AN ANXIETY UNSPEC 12/18/2008 CHADD MANUEL DO 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 12/18/2008 CHADD MANUEL DO 307.47 SI DYSSOMNIA NOS 12/18/2008 CHADD MANUEL DO 311 MO DEPRESS NOS 12/18/2008 CHADD MANUEL DO 300.00 AN ANXIETY UNSPEC 12/18/2008 CHADD MANUEL DO 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 12/18/2008 CHADD MANUEL DO 307.47 SI DYSSOMNIA NOS 12/18/2008 CHADD MANUEL DO 311 MO DEPRESS NOS 12/18/2008 CHADD MANUEL DO 300.00 AN ANXIETY UNSPEC 12/18/2008 CHADD MANUEL DO 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 12/18/2008 CHADD MANUEL DO 307.47 SI DYSSOMNIA NOS 12/18/2008 CHADD MANUEL DO 311 MO DEPRESS NOS 03/20/2009 CHADD MANUEL DO 079.99 UNSPECIFIED VIRAL INFECTION 03/20/2009 CHADD MANUEL DO 079.99 UNSPECIFIED VIRAL INFECTION 03/20/2009 CHADD MANUEL DO 079.99 UNSPECIFIED VIRAL INFECTION 03/31/2009 CHADD MANUEL DO 939.9 FOREIGN BODY IN UNSPECIFIED SITE IN GENITOURINARY TRACT 03/31/2009 CHADD MANUEL DO F 995.20 UNSPECIFIED ADVERSE EFFECT OF UNSPECIFIED DRUG MEDICINAL AND BIOLOGICAL SUBSTANCE 03/31/2009 CHADD MANUEL DO F 939.9 FOREIGN BODY IN UNSPECIFIED SITE IN GENITOURINARY TRACT 03/31/2009 CHADD MANUEL DO 995.20 UNSPECIFIED ADVERSE EFFECT OF UNSPECIFIED DRUG MEDICINAL AND BIOLOGICAL SUBSTANCE 03/31/2009 CHADD MANUEL DO 939.9 FOREIGN BODY IN UNSPECIFIED SITE IN GENITOURINARY TRACT 03/31/2009 CHADD MANUEL DO 995.20 UNSPECIFIED ADVERSE EFFECT OF UNSPECIFIED DRUG MEDICINAL AND BIOLOGICAL SUBSTANCE 04/02/2009 CHADD MANUEL DO 599.70 HEMATURIA, UNSPECIFIED 04/02/2009 CHADD MANUEL DO F 599.70 HEMATURIA, UNSPECIFIED 04/02/2009 CHADD MANUEL DO F 599.70 HEMATURIA, UNSPECIFIED 06/02/2009 CHADD MANUEL DO 304.80 SA POLYSUB DEP 06/02/2009 CHADD MANUEL DO F 304.80 SA POLYSUB DEP 06/02/2009 CHADD MANUEL DO F 304.80 SA POLYSUB DEP 09/29/2009 CHADD MANUEL DO 298.9 P PSYCHOSIS NOS 09/29/2009 CHADD MANUEL DO 298.9 P PSYCHOSIS NOS 09/29/2009 CHADD MANUEL DO 298.9 P PSYCHOSIS NOS 02/10/2010 CHADD MANUEL DO 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, OF GROIN AND PERIANAL AREA 02/10/2010 CHADD MANUEL DO 796.2 ELEVATED BLOOD PRESSURE READING WITHOUT DIAGNOSIS OF HYPERTENSION 02/10/2010 MAR MOLINA, CHADD F 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, OF GROIN AND PERIANAL AREA 02/10/2010 MAR , CHADD F 796.2 ELEVATED BLOOD PRESSURE READING WITHOUT DIAGNOSIS OF HYPERTENSION 02/10/2010 MAR MOLINA, CHADD F 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, OF GROIN AND PERIANAL AREA 02/10/2010 [facility], CHADD F 796.2 ELEVATED BLOOD PRESSURE READING WITHOUT DIAGNOSIS OF HYPERTENSION 07/28/2010 MAR MOLINA, CHADD F 840.9 SPRAIN/STRAIN SHOULDER/ARM 07/28/2010 [facility], CHADD F E016.9 OTHER ACTIVITY INVOLVING PROPERTY AND LAND MAINTENANCE BUILDING AND CONSTRUCTION 07/28/2010 [facility], CHADD F 840.9 SPRAIN/STRAIN SHOULDER/ARM 07/28/2010 [facility], CHADD F E016.9 OTHER ACTIVITY INVOLVING PROPERTY AND LAND MAINTENANCE BUILDING AND CONSTRUCTION 07/28/[address] [facility], CHADD F 840.9 SPRAIN/STRAIN SHOULDER/ARM 07/28/2010 [facility] E016.9 OTHER ACTIVITY INVOLVING PROPERTY AND LAND MAINTENANCE BUILDING AND CONSTRUCTION 07/05/2011 CHADD MANUEL DO F V58.69 MEDICATION HIGH RISK 07/05/[address] [facility], CHADD F V58.69 MEDICATION HIGH RISK 07/05/2011 [facility], CHADD F V58.69 MEDICATION HIGH RISK 07/25/[address] [facility] 682.6 CELLULITIS AND ABSCESS OF LEG EXCEPT FOOT 07/25/2011 CHADD MANUEL DO F 682.6 CELLULITIS AND ABSCESS OF LEG EXCEPT FOOT 07/25/2011 [facility] CHADD MOLINA F 682.6 CELLULITIS AND ABSCESS OF LEG EXCEPT FOOT 12/01/2011 CHADD MANUEL DO F 682.3 CELLULITIS OF THE LEFT FOREARM 12/01/2011 CHADD MANUEL DO F 682.3 CELLULITIS OF THE LEFT FOREARM 12/01/2011 CHADD MANUEL DO F 682.3 CELLULITIS OF THE LEFT FOREARM 03/23/2012 CHADD MANUEL DO F 724.2 BACK PAIN, LOWER 03/23/2012 CHADD MANUEL DO F 949.0 BURN DEGREE UNSPEC 03/23/2012 CHADD MANUEL DO F 724.2 BACK PAIN, LOWER 03/23/2012 CHADD MANUEL DO 949.0 BURN DEGREE UNSPEC 03/23/2012 CHADD MANUEL DO F 724.2 BACK PAIN, LOWER 03/23/2012 CHADD MANUEL DO F 949.0 BURN DEGREE UNSPEC 01/30/2013 CHADD MANUEL DO F 300.02 AN GEN ANXIETY 01/30/2013 CHADD MANUEL DO F 304.40 AMPHETAMINE DEPENDENCE 01/16/2015 Festus Kathleen Final 599.0 Urinary Tract Infection, Site Not Specified 01/16/2015 Festus Kathleen Final 796.2 Elevated Blood Pressure Reading without Diagnosis of Hyperte 10/02/2015 ARY GOOD, TOAN Acevedo Ot L02.511 12/16/2015 ALAYNA MEAD V Other BOSTON, ALAYNA Vaca 12/16/2015 ALAYNA MEAD V L03.90 Cellulitis, unspecified BOSTON, ALAYNA Vaca 12/16/2015 ALAYNA MEAD P L08.9 Local infection of the skin and subcutaneous tissue, unspecified BOSTON, ALAYNA Vaca 12/16/2015 ALAYNA MEAD V R59.1 Generalized enlarged lymph nodes BOSTON, ALAYNA Vaca 12/16/2015 ALAYNA MEAD V R65.10 Systemic inflammatory response syndrome (sirs) of non-infectious origin without acute organ dysfunction ALAYNA MEAD Procedures Code Description [place] [id number] [facility] 08/22/2012 Results Test Result Range CBC WITH AUTO DIFFERENTIAL - 12/13/15 12:38 BASOPHILS RELATIVE PERCENT 0.3 % 0.0-2.5 EOSINOPHILS RELATIVE PERCENT 1.7 % <=5.0 HEMATOCRIT 44.0 % 38.8-50.0 HEMOGLOBIN 14.3 g/dL 13.5-17.5 LYMPHOCYTES RELATIVE PERCENT 1.4 % 22.0-49.0 MEAN CORPUSCULAR HEMOGLOBIN 28.8 pg 26.0-34.0 MEAN CORPUSCULAR HEMOGLOBIN CONC 32.4 g/dL 31.0-37.0 MEAN CORPUSCULAR VOLUME 89.0 fL 81.2-95.1 MONOCYTES RELATIVE PERCENT 2.3 % 2.0-9.0 NEUTROPHILS RELATIVE PERCENT 94.3 % 40.0-75.0 PLATELET COUNT 232 10E9/L 150-450 RED BLOOD CELL COUNT 4.95 10E12/L 4.32-5.72 RED CELL DISTRIBUTION WIDTH 14.2 % 11.8-15.6 [id number] 22.0 10E9/L 3.5-10.5 [id number] 0.30 10E9/L 0.90-2.90 [id number] 0.50 10E9/L 0.30-0.90 [id number] 0.40 10E9/L 0.05-0.50 [id number] 20.80 10E9/L 1.70-7.00 [id number] 0.10 10E9/L 0.00-0.30 LACTIC ACID, PLASMA - 12/13/15 12:38 LACTIC ACID 1.52 mmol/L 0.50-2.20 C-REACTIVE PROTEIN - 12/13/15 12:38 [id number] 16.1 mg/dL <=0.9 COMPREHENSIVE METABOLIC PANEL - 12/13/15 12:38 ALBUMIN 3.6 g/dL 3.4-4.8 ALKALINE PHOSPHATASE 138 U/L 29-122 ALT 77 U/L 10-46 AST 52 U/L 16-37 BILIRUBIN,TOTAL 3.3 mg/dL 0.2-1.3 BUN BLOOD 22 mg/dL 6-20 CALCIUM 9.5 mg/dL 8.7-10.5 CHLORIDE 102 mmol/L 99-111 CO2 30 mmol/L 20-36 CREATININE 1.08 mg/dL 0.60-1.20 EGFR > mL/min >59 GLUCOSE 115 mg/dL 74-106 POTASSIUM 3.6 mmol/L 3.6-4.9 PROTEIN TOTAL 7.2 g/dL 6.4-8.3 SODIUM 136 mmol/L 136-145 BLOOD CULTURE - 12/13/15 12:38 [id number] No Growth after 5 days incubation BLOOD CULTURE - 12/13/15 12:52 [id number] No Growth after 5 days incubation COMPREHENSIVE METABOLIC PANEL - 12/14/15 06:36 ALBUMIN 2.8 g/dL 3.4-4.8 ALKALINE PHOSPHATASE 115 U/L 29-122 ALT 52 U/L 10-46 AST 33 U/L 16-37 BILIRUBIN,TOTAL 2.1 mg/dL 0.2-1.3 BUN BLOOD 16 mg/dL 6-20 CALCIUM 8.2 mg/dL 8.7-10.5 CHLORIDE 108 mmol/L 99-111 CO2 26 mmol/L 20-36 CREATININE 0.86 mg/dL 0.60-1.20 EGFR > mL/min >59 GLUCOSE 125 mg/dL 74-106 POTASSIUM 3.7 mmol/L 3.6-4.9 PROTEIN TOTAL 5.7 g/dL 6.4-8.3 SODIUM 138 mmol/L 136-145 SCAN - 12/14/15 06:36 RBC MORPHOLOGY RBC morphology appears normal [id number] Results confirmed by microscopic exam CBC WITH AUTO DIFFERENTIAL - 12/15/15 06:32 BASOPHILS RELATIVE PERCENT 0.3 % 0.0-2.5 EOSINOPHILS RELATIVE PERCENT 5.5 % <=5.0 HEMATOCRIT 35.9 % 38.8-50.0 HEMOGLOBIN 11.6 g/dL 13.5-17.5 LYMPHOCYTES RELATIVE PERCENT 6.2 % 22.0-49.0 MEAN CORPUSCULAR HEMOGLOBIN 28.9 pg 26.0-34.0 MEAN CORPUSCULAR HEMOGLOBIN CONC 32.4 g/dL 31.0-37.0 MEAN CORPUSCULAR VOLUME 89.4 fL 81.2-95.1 MONOCYTES RELATIVE PERCENT 3.7 % 2.0-9.0 NEUTROPHILS RELATIVE PERCENT 84.3 % 40.0-75.0 PLATELET COUNT 213 10E9/L 150-450 RED BLOOD CELL COUNT 4.01 10E12/L 4.32-5.72 RED CELL DISTRIBUTION WIDTH 14.7 % 11.8-15.6 [id number] 15.2 10E9/L 3.5-10.5 [id number] 0.90 10E9/L 0.90-2.90 3208898 0.60 10E9/L 0.30-0.90 0740437 0.80 10E9/L 0.05-0.50 2603696 12.80 10E9/L 1.70-7.00 [id number] 0.00 10E9/L 0.00-0.30 C-REACTIVE PROTEIN - 12/15/15 06:32 [id number] 14.6 mg/dL <=0.9 COMPREHENSIVE METABOLIC PANEL - 12/15/15 06:32 ALBUMIN 2.7 g/dL 3.4-4.8 ALKALINE PHOSPHATASE 140 U/L 29-122 ALT 45 U/L 10-46 AST 32 U/L 16-37 BILIRUBIN,TOTAL 1.2 mg/dL 0.2-1.3 BUN BLOOD 12 mg/dL 6-20 CALCIUM 8.5 mg/dL 8.7-10.5 CHLORIDE 106 mmol/L 99-111 CO2 24 mmol/L 20-36 CREATININE 0.79 mg/dL 0.60-1.20 EGFR > mL/min >59 GLUCOSE 103 mg/dL 74-106 POTASSIUM 3.4 mmol/L 3.6-4.9 PROTEIN TOTAL 5.7 g/dL 6.4-8.3 SODIUM 137 mmol/L 136-145 CBC WITH AUTO DIFFERENTIAL - 12/16/15 07:13 BASOPHILS RELATIVE PERCENT 0.3 % 0.0-2.5 EOSINOPHILS RELATIVE PERCENT 6.0 % <=5.0 HEMATOCRIT 35.5 % 38.8-50.0 HEMOGLOBIN 11.5 g/dL 13.5-17.5 LYMPHOCYTES RELATIVE PERCENT 11.9 % 22.0-49.0 MEAN CORPUSCULAR HEMOGLOBIN 28.7 pg 26.0-34.0 MEAN CORPUSCULAR HEMOGLOBIN CONC 32.3 g/dL 31.0-37.0 MEAN CORPUSCULAR VOLUME 89.0 fL 81.2-95.1 MONOCYTES RELATIVE PERCENT 6.6 % 2.0-9.0 NEUTROPHILS RELATIVE PERCENT 75.2 % 40.0-75.0 PLATELET COUNT 260 10E9/L 150-450 RED BLOOD CELL COUNT 3.99 10E12/L 4.32-5.72 RED CELL DISTRIBUTION WIDTH 14.7 % 11.8-15.6 [id number] 12.0 10E9/L 3.5-10.5 [id number] 1.40 10E9/L 0.90-2.90 [id number] 0.80 10E9/L 0.30-0.90 [id number] 0.70 10E9/L 0.05-0.50 [id number] 9.10 10E9/L 1.70-7.00 [id number] 0.00 10E9/L 0.00-0.30 SCAN - 12/16/15 07:13 [id number] Results confirmed by microscopic exam C-REACTIVE PROTEIN - 12/16/15 07:13 [id number] 10.5 mg/dL <=0.9 COMPREHENSIVE METABOLIC PANEL - 12/16/15 07:13 ALBUMIN 2.8 g/dL 3.4-4.8 ALKALINE PHOSPHATASE 147 U/L 29-122 ALT 36 U/L 10-46 AST 28 U/L 16-37 BILIRUBIN,TOTAL 0.8 mg/dL 0.2-1.3 BUN BLOOD 10 mg/dL 6-20 CALCIUM 8.3 mg/dL 8.7-10.5 CHLORIDE 107 mmol/L 99-111 CO2 26 mmol/L 20-36 CREATININE 0.82 mg/dL 0.60-1.20 EGFR > mL/min >59 GLUCOSE 105 mg/dL 74-106 POTASSIUM 3.3 mmol/L 3.6-4.9 PROTEIN TOTAL 6.0 g/dL 6.4-8.3 SODIUM 137 mmol/L 136-145 CULTURE, URINE - 08/08/17 15:33 CULTURE, URINE, ROUTINE SEE NOTE NRG Encounters ACCT No. Visit Date/Time Discharge Status Pt. Type Provider Facility Loc./Unit Complaint [id number] 01/16/2015 17:12:00 01/16/2015 23:59:00 DIS Outpatient Festus Kathleen Guarantor/person VIANNEY ELEV BL PRES W/O HYPERTN [id number] 10/01/2015 23:45:00 10/02/2015 01:07:00 DIS Emergency ARY GOOD, TOAN Acevedo [facility] ER [id number] 01/30/2013 17:00:00 01/30/2013 23:59:59 CLS Outpatient CHADD MANUEL DO [id number] 08/18/2012 12:57:00 08/18/2012 23:59:59 CLS Outpatient CHADD MANUEL DO [id number] 06/22/2012 09:51:00 06/22/2012 23:59:59 CLS Outpatient CHADD MANUEL DO [id number] 12/21/2015 11:04:47 12/21/2015 23:59:59 CLS Outpatient MO SAUNDERS [facility] 901 [id number] 12/13/2015 11:21:41 12/16/2015 11:04:00 DIS Inpatient ALAYNA MEAD [facility] 7S [id number] 12/13/2015 12:32:40 Document Registration [id number] 02/06/2018 15:40:00 02/06/2018 23:59:59 CLS Outpatient VERONIKA KUMAR APRN [facility] [id number] 08/08/2017 14:40:00 Document Registration [id number] 12/23/2015 14:23:48 12/23/2015 23:59:59 CLS Outpatient Leonora Howard
--- OUTSIDE RECORDS SUMMARY | 2018-06-02 04:33 | XMS REPORT ---
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
== END 2018-06-01 22:53 | disposition home or self-care (01) ==
LOC: ER 19:11 → EDUNIT# 19:11 → ER 22:53
DX: L23.7 Allergic contact dermatitis due to plants, except food (principal); L29.9 Pruritus, unspecified; I10 Essential (primary) hypertension; N39.0 Urinary tract infection, site not specified; Z79.52 Long term (current) use of systemic steroids
CPT/HCPCS: 36415; 71045; 80053; 81000; 83880; 84484; 85025; 87077; 87088; 87186; 93005; 96365

== ENCOUNTER 2019-06-17 10:56 | Inpatient (IN) | payer OTHER ==
[2019-06-17] VITALS (12 sets, daily range): BP systolic 124–172; BP diastolic 99–134
[~2019-06-17] VITALS: Ht 193 cm; Wt 131.8 kg
[~2019-06-17 10:56] MED LIST changes: +CIPR-225 PO; +METO-352 PO; +PRD20T PO
--- NOTE | 2019-06-17 11:09 | ED Dyspnea ---
General Stated Complaint: SOA Source of Information: Patient History of Present Illness Date Seen by Provider: Jun 17, 2019 Time Seen by Provider: 11:00 Initial Comments PT ARRIVES VIA POV C/O SHORTNESS OF BREATH FOR OVER A WEEK, WORSE WITH LAYING DOWN + PRODUCTIVE COUGH FOR A COUPLE OF WEEKS NO FEVER NO CHEST PAIN HAS CHRONIC SWELLING IN LEGS, "NOT BAD TODAY" HAS NOT SOUGHT CARE UNTIL TODAY STATES HE HAS HTN, AND WAS STARTED ON ? AMLODIPINE ? A WEEK OR SO AGO --LATER STATES IT WAS THE BEGINNING OF LAST MONTH HAS NOT TAKEN ANY MEDICATION TODAY. STATES THAT HE IS SUPPOSED TO BE STARTING AN UNKNOWN MEDICATION FOR THYROID, BUT HAS NOT RECEIVED RX. 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 A KID" ( LATER ALSO ADMITS TO SMOKING METH) PT STATES HE HAS BEEN HOMELESS AND LIVING IN HIS CAR FOR THE LAST MONTH OR SO PCP: VICKEY-LENKA, GABRIEL KUMAR Allergies and Home Medications Allergies Coded Allergies: No Known Drug Allergies (Unverified , 10/02/15) Home Medications Ciprofloxacin HCl 500 Mg Tablet, 500 MG PO BID Prescribed by: HILLARY OCAMPO on 06/01/182217 Lisinopril 10 Mg Tablet, 10 MG PO DAILY, (Reported) Metoprolol Succinate 50 Mg Tab.er.24h, 50 MG PO DAILY Prescribed by: HILLARY OCAMPO on 06/01/182217 Prednisone 20 Mg Tab, 40 MG PO DAILY Take 3 tabs(60mg)daily, decrease by 1/2 tab(10mg)daily. Prescribed by: HILLARY OCAMPO on 06/01/182217 Patient Home Medication List Home Medication List Reviewed: Yes Review of Systems Review of Systems Constitutional: No chills, No diaphoresis, No dizziness, No fever EENTM: no symptoms reported Respiratory: see HPI, cough, dyspnea on exertion, orthopnea; No phlegm; short of breath; No wheezing Cardiovascular: No chest pain; edema; No palpitations, No syncope, No vascular heart diseas Gastrointestinal: no symptoms reported, abdominal pain (DIFFUSE RIGHT SIDED ABDOMINAL PAIN ) Genitourinary: no symptoms reported Musculoskeletal: no symptoms reported Skin: no symptoms reported Psychiatric/Neurological: No Symptoms Reported Endocrine: No Symptoms Reported Hematologic/Lymphatic: No Symptoms Reported Past Xsutnbd-Ltjgyo-Jcybve Hx Past Med/Social Hx: Reviewed and Corrections made Patient Social History Alcohol Use: Denies Use Recreational Drug Use: Yes (MARIJUANA, METH--DENIES IV USE) Drug of Choice: MARIJUANA, METH--DENIES IV USE Smoking Status: Never a Smoker Recent Hopitalizations: No Past Medical History Surgeries: Yes Abdominal Respiratory: No Cardiac: Yes Hypertension Neurological: No Reproductive Disorders: No Genitourinary: Yes Kidney Stones Gastrointestinal: No Musculoskeletal: No Endocrine: No HEENT: No Cancer: No Psychosocial: No Integumentary: No Blood Disorders: No Family Medical History No Pertinent Family Hx Physical Exam Vital Signs Vital Signs - First Documented 06/17/19 06/17/19 11:00 12:05 Temp 35.8 Pulse 112 Resp 25 B/P (MAP) 172/134 (147) Pulse Ox 97 O2 Delivery Nasal Cannula O2 Flow Rate 2.00 Capillary Refill : Height, Weight, BMI Height: 6'4.00" Weight: 270lbs. oz. 122.163006xn; BMI Method:Stated General Appearance: No Apparent Distress, Anxious (MILD), Obese, Other (DIRTY, UNKEMPT, MALODOROUS; CONSTANT MOVEMENTS OF BODY AND MOUTH. . SPEECH SOMEWHAT RAPID AND MUMBLED. ) HEENT: PERRL/EOMI, Other (POOR DENTITION) Neck: Normal Inspection; No Carotid Bruit, No JVD Respiratory: Normal Breath Sounds, No Accessory Muscle Use, No Respiratory Distress, Other (MILDLY DYSPNEIC, BUT TALKS IN FULL SENTENCES) Cardiovascular: No JVD, No Murmur, Normal Peripheral Pulses, Tachycardia Gastrointestinal: Normal Bowel Sounds, No Organomegaly, No Pulsatile Mass, Soft, Tenderness (MILD DIFFUSE RIGHT ABDOMINAL TENDERNESS) Extremity: Pedal Edema (1+ BILATERALLY. 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 NO SIGNS OF INFECTION. ) Focused Exam Lactate Level 06/17/19 12:37: Lactic Acid Level 0.92 Lactic Acid Level Laboratory Tests Test 06/17/19 12:37 Lactic Acid Level 0.92 MMOL/L (0.50-2.00) Progress/Results/Core Measures Results/Orders Lab Results Laboratory Tests Test 06/17/19 11:05 06/17/19 12:32 06/17/19 12:37 06/17/19 14:00 Range/Units White Blood Count 7.7 4.3-11.0 10^3/uL Red Blood Count 5.07 4.35-5.85 10^6/uL Hemoglobin 13.8 13.3-17.7 G/DL Hematocrit 43 40-54 % Mean Corpuscular Volume 85 80-99 FL Mean Corpuscular Hemoglobin 27 25-34 PG Mean Corpuscular Hemoglobin Concent 32 32-36 G/DL Red Cell Distribution Width 15.8 H 10.0-14.5 % Platelet Count 227 130-400 10^3/uL Mean Platelet Volume 10.2 7.4-10.4 FL Neutrophils (%) (Auto) 55 42-75 % Lymphocytes (%) (Auto) 29 12-44 % Monocytes (%) (Auto) 11 0-12 % Eosinophils (%) (Auto) 5 0-10 % Basophils (%) (Auto) 1 0-10 % Neutrophils # (Auto) 4.2 1.8-7.8 X 10^3 Lymphocytes # (Auto) 2.2 1.0-4.0 X 10^3 Monocytes # (Auto) 0.8 0.0-1.0 X 10^3 Eosinophils # (Auto) 0.4 H 0.0-0.3 10^3/uL Basophils # (Auto) 0.1 0.0-0.1 10^3/uL Prothrombin Time 14.5 12.2-14.7 SEC INR Comment 1.1 0.8-1.4 Activated Partial Thromboplast Time 30 24-35 SEC Sodium Level 139 135-145 MMOL/L Potassium Level 3.8 3.6-5.0 MMOL/L Chloride Level 107 98-107 MMOL/L Carbon Dioxide Level 22 21-32 MMOL/L Anion Gap 10 5-14 MMOL/L Blood Urea Nitrogen 17 7-18 MG/DL Creatinine 1.26 0.60-1.30 MG/DL Estimat Glomerular Filtration Rate 60 BUN/Creatinine Ratio 13 Glucose Level 111 H 70-105 MG/DL Calcium Level 9.6 8.5-10.1 MG/DL Corrected Calcium 9.4 8.5-10.1 MG/DL Magnesium Level 1.9 1.6-2.4 MG/DL Total Bilirubin 0.9 0.1-1.0 MG/DL Aspartate Amino Transf (AST/SGOT) 68 H 5-34 U/L Alanine Aminotransferase (ALT/SGPT) 79 H 0-55 U/L Alkaline Phosphatase 97 40-136 U/L Total Creatine Kinase 65 30-200 U/L Creatine Kinase MB 1.7 <6.6 NG/ML Myoglobin 50.9 10.0-92.0 NG/ML Troponin I 0.032 H <0.028 NG/ML B-Type Natriuretic Peptide 801.4 H <100.0 PG/ML Total Protein 8.5 H 6.4-8.2 GM/DL Albumin 4.2 3.2-4.5 GM/DL Amylase Level 59 25-125 U/L Lipase 30 8-78 U/L Procalcitonin 0.02 <0.10 NG/ML Serum Alcohol < 10 <10 MG/DL Blood Gas Puncture Site RR Blood Gas Patient Temperature 35.8 Arterial Blood pH 7.46 H 7.37-7.43 Arterial Blood Partial Pressure CO2 28 L 35-45 MMHG Arterial Blood Partial Pressure O2 84 79-93 MMHG Arterial Blood HCO3 20 L 23-27 MMOL/L Arterial Blood Total CO2 20.9 L 21.0-31.0 MMOL/L Arterial Blood Oxygen Saturation 98 94-100 % Arterial Blood Base Excess -3.5 L -2.5-2.5 MMOL/L [place] Test YES-POS Blood Gas Ventilator Setting NO Blood Gas Inspired Oxygen 2L Lactic Acid Level 0.92 0.50-2.00 MMOL/L Free Thyroxine 1.11 0.70-1.48 NG/DL TSH [place] Testing 7.66 H 0.35-4.94 UIU/ML Urine Color YELLOW Urine Clarity CLEAR Urine pH 6.5 5-9 Urine Specific [place] 1.010 L 1.016-1.022 Urine Protein 2+ H NEGATIVE Urine Glucose (UA) NEGATIVE NEGATIVE Urine Ketones NEGATIVE NEGATIVE Urine Nitrite NEGATIVE NEGATIVE Urine Bilirubin NEGATIVE NEGATIVE Urine Urobilinogen NORMAL NORMAL MG/DL Urine Leukocyte Esterase 3+ H NEGATIVE Urine RBC (Auto) 4+ H NEGATIVE Urine RBC 10-25 H /HPF Urine WBC TNTC H /HPF Urine Squamous Epithelial Cells 0-2 /HPF Urine Crystals NONE /LPF Urine Bacteria FEW H /HPF Urine Casts NONE /LPF Urine Mucus SMALL H /LPF Urine Culture Indicated YES Urine Opiates Screen NEGATIVE NEGATIVE Urine Oxycodone Screen NEGATIVE NEGATIVE Urine Methadone Screen NEGATIVE NEGATIVE Urine Propoxyphene Screen NEGATIVE NEGATIVE Urine Barbiturates Screen NEGATIVE NEGATIVE Ur Tricyclic Antidepressants Screen NEGATIVE NEGATIVE Urine Phencyclidine Screen NEGATIVE NEGATIVE Urine Amphetamines Screen POSITIVE H NEGATIVE Urine Methamphetamines Screen POSITIVE H NEGATIVE Urine Benzodiazepines Screen NEGATIVE NEGATIVE Urine Cocaine Screen NEGATIVE NEGATIVE Urine Cannabinoids Screen NEGATIVE NEGATIVE Micro Results Microbiology 06/17/19 Influenza Types A,B Antigen (CAMILA) - Final, Complete My Orders Orders - AZAEL EL DO Cbc With Automated Diff (06/17/19 11:04) Magnesium (06/17/19 11:04) Chest 1 View, Ap/Pa Only (06/17/19 11:04) Ekg Tracing (06/17/19 11:04) Cardiac Profile 1 (06/17/19 11:04) Comprehensive Metabolic Panel (06/17/19 11:04) Myoglobin Serum (06/17/19 11:04) Protime With Inr (06/17/19 11:04) Partial Thromboplastin Time (06/17/19 11:04) O2 (06/17/19 11:04) Monitor-Rhythm Ecg Trace Only (06/17/19 11:04) Lipid Panel (06/18/19 06:00) Ed Iv/Invasive Line Start (06/17/19 11:04) Creatine Kinase (06/17/19 11:04) Creatine Kinase Mb (06/17/19 11:04) Lipase (06/17/19 11:04) Amylase (06/17/19 11:04) BNP (06/17/19 11:04) Aspirin Chewable Tablet (Baby Aspirin Ch (06/17/19 11:15) Drug Screen Stat (Urine) (06/17/19 11:04) Ua Culture If Indicated (06/17/19 11:04) Labetalol Injection (Normodyne Injection (06/17/19 11:15) Alcohol (06/17/19 11:05) Furosemide Injection (Lasix Injection) (06/17/19 12:15) Ekg Tracing (06/17/19 12:05) Arterial Blood Gas (06/17/19 12:32) Lactic Acid Analyzer (06/17/19 12:15) Thyroid Analyzer (06/17/19 12:15) Blood Culture (06/17/19 12:15) Influenza A And B Antigens (06/17/19 12:15) Ct Angio Chest W (06/17/19 12:28) Arterial Blood Draw (06/17/19 ) Free T4 (Free Thyroxine) (06/17/19 12:37) Iohexol Injection (Omnipaque 350 Mg/Ml 1 (06/17/19 13:30) Received Contrast (Hold Metformin- Contr (06/17/19 13:30) Ns (Ivpb) (Sodium Chloride 0.9% Ivpb Bag (06/17/19 13:30) Ceftriaxone For Iv Use (Rocephin For I (06/17/19 14:00) Azithromycin Injection (Zithromax Inject (06/17/19 14:00) Enoxaparin Injection (Lovenox Injection) (06/17/19 14:15) Enoxaparin Injection (Lovenox Injection) (06/17/19 14:15) Methylprednisolone Sod Succ (Solu-Medrol (06/17/19 14:15) Medications Given in ED Current Medications Medications Dose Ordered Sig/Rolan Route Start Time Stop Time Status Last Admin Dose Admin Aspirin 324 mg ONCE ONCE PO 06/17/19 11:15 06/17/19 11:16 DC 06/17/19 11:18 324 MG Azithromycin 500 mg/Sodium Chloride 250 ml @ 250 mls/hr ONCE ONCE IV 06/17/19 14:00 06/17/19 14:59 DC 06/17/19 14:54 250 MLS/HR Ceftriaxone Sodium 1000 mg/ Sterile Water 10 ml @ 200 mls/hr ONCE ONCE IV 06/17/19 14:00 06/17/19 14:02 DC 06/17/19 14:29 200 MLS/HR Enoxaparin Sodium 50 mg ONCE ONCE SC 06/17/19 14:15 06/17/19 14:16 DC 06/17/19 14:41 50 MG Enoxaparin Sodium 100 mg ONCE ONCE SC 06/17/19 14:15 06/17/19 14:16 DC 06/17/19 14:29 100 MG Furosemide 80 mg ONCE ONCE IVP 06/17/19 12:15 06/17/19 12:16 DC 06/17/19 12:20 80 MG Iohexol 100 ml ONCE ONCE IV 06/17/19 13:30 06/17/19 13:31 DC 06/17/19 16:36 100 ML Labetalol HCl 20 mg ONCE ONCE IV 06/17/19 11:15 06/17/19 11:16 DC 06/17/19 11:19 20 MG Methylprednisolone Sodium Succinate 125 mg ONCE ONCE IVP 06/17/19 14:15 06/17/19 14:16 DC 06/17/19 14:29 125 MG Sodium Chloride 100 ml ONCE ONCE IV 06/17/19 13:30 06/17/19 13:31 DC 06/17/19 16:36 100 ML Vital Signs/I&O 06/17/19 06/17/19 11:00 12:05 Temp 35.8 Pulse 112 Resp 25 B/P (MAP) 172/134 (147) Pulse Ox 97 89 O2 Delivery Nasal Cannula O2 Flow Rate 2.00 Progress Progress Note : Progress Note INITIAL HEART RATE 110-120, AND INITIAL BP 'S 170'S/130'S GIVEN ASPIRIN GIVEN LABETALOL FOR HTN AND HEART RATE. HEART RATE DOWN TO 90'S AND BP DOWN TO 120'S/70'S 1210--PT NOW PROFUSELY DIAPHORETIC, STATES IT STARTED ABOUT 10 MINUTES AGO--HAS NOT BEEN HAVING SWEATS, PRIOR TO THIS O2 SATS 91-92% ON ROOM AIR, PLACED ON O2 AT 2L/NC AND SATS UP TO 98% NO FEVER NO INCREASE IN SHORTNESS OF BREATH NO CHEST PAIN NO NAUSEA/VOMITING NO DIZZINESS PT NOW ADMITS TO USING METH "ABOUT A WEEK AGO" --SMOKED IT, DENIES IV USE 1600--PT BEGAN TO HAVE PROFUSE DIAPHORESIS AGAIN, OTHERWISE NO SYMPTOMS--NO CHEST PAIN, NO INCREASE IN SHORTNESS OF BREATH, VITALS STABLE. NO FEVER. REPEAT EKG DONE AND REPEAT TROPONIN ORDERED. GIVEN TOPROL XL BP STARTING TO ELEVATE AGAIN. NO CHEST PAIN AT ANY TIME DURING ER STAY NO COMPLAINTS OF DYSPNEA FOR REMAINDER OF ER STAY Initial ECG Impression Date: Jun 17, 2019 Initial ECG Impression Time: 11:04 Initial ECG Rate: 109 Initial ECG Rhythm: S.Tach EKG : EKG Time: 12:12 Rate: 91 Rhythm: Normal Sinus Comment EKG #3 AT 1541. RATE 97, NSR, NO ACUTE CHANGES. Diagnostic Imaging Comments CXR--MILD VASCULAR CONGESTION, NEW RIGHT PLEURAL EFFUSION AND ATELECTASIS/INFILT RATE IN RIGHT BASE, WITH ELEVATED RIGHT DIAPHRAGM--PER RADIOLOGIST REPORT AT 1210 CT CHEST ANGIOGRAM--NO P.E. MODERATE SIZED RIGHT PLEURAL EFFUSION WITH RIGHT LOWER LOBE CONSOLIDATION; CARDIOMEGALY. PER RADIOLOGIST REPORT AT 1405 Reviewed: Reviewed by Me Departure Communication (Admissions) 1227--MESSAGE TO DR. GLASS IN [employer]. HE AGREES WITH OBTAINING CT CHEST ANGIOGRAM/HE WILL BE IN [employer] ASSOCIATE FOR SEVERAL HOURS 1405--SPOKE WITH DR. GRIJALVA, HOSPITALIST, ACCEPTS PT FOR ADMIT 1410--SPOKE WITH DR. GUEVARA, BOARD MACHINE SET UP OPERATOR, FOR CONSULT. RECOMMENDS ZOSYN -CURRENTLY ON ICU DIVERSION UNTIL 1900, SO WILL HOLD IN ER UNTIL THEN 1629--ATTEMPTING TO CONTACT DR. GLASS, MESSAGE LEFT ON CELL. STILL IN [employer] AND PRINT ASSOCIATE. 1639--SPOKE WITH DR. GLASS, HE AGREES WITH PLAN OF CARE. WILL GET ECHO IN AM. BOTH DR. GRIJALVA AND DR. GLASS SAW PT IN ER, HE IS ON "ED HOLD" UNTIL 1900 Impression Primary Impression: RLL pneumonia Additional Impressions: Pleural effusion on right CHF (congestive heart failure) HTN (hypertension) Elevated troponin Methamphetamine abuse UTI (urinary tract infection) Disposition: ADMITTED INPATIENT Condition: Stable Admissions Decision to Admit Reason: Admit from ER (General) Decision to Admit/Date: Jun 17, 2019 Time/Decision to Admit Time: 14:10 Departure-Patient Inst. Referrals: [facility] (PCP) Primary Care Physician LUIGI VALENTINE (Family) Primary Care Physician AZAEL EL DO Jun 17, 2019 11:09
[2019-06-17] MEDS ORDERED: LABETALOL HCL 20 MG/4 ML VIAL IV ONE (11:15)
[2019-06-17] MEDS ORDERED: ASPIRIN 81 MG CHEW (CHILDREN'S ASA) PO ONE (11:15)
[2019-06-17 11:16] LABS: BASOPHILS # (AUTO) 0.1 10^3/uL (0.0-0.1); BASOPHILS % (AUTO) 1 % (0-10); EOSINOPHILS # (AUTO) 0.4 10^3/uL (0.0-0.3); EOSINOPHILS % (AUTO) 5 % (0-10); HEMATOCRIT 43 % (40-54); HEMOGLOBIN 13.8 G/DL (13.3-17.7); LYMPHOCYTES # (AUTO) 2.2 X 10^3 (1.0-4.0); LYMPHOCYTES % (AUTO) 29 % (12-44); MEAN CORPUSCULAR HEMOGLOBIN 27 PG (25-34); MEAN CORPUSCULAR HGB CONC 32 G/DL (32-36); MEAN CORPUSCULAR VOLUME 85 FL (80-99); MEAN PLATELET VOLUME 10.2 FL (7.4-10.4); MONOCYTES # (AUTO) 0.8 X 10^3 (0.0-1.0); MONOCYTES % (AUTO) 11 % (0-12); NEUTROPHILS # (AUTO) 4.2 X 10^3 (1.8-7.8); NEUTROPHILS % (AUTO) 55 % (42-75); PLATELET COUNT 227 10^3/uL (130-400); RED CELL DISTRIBUTION WIDTH 15.8 % (10.0-14.5); WHITE BLOOD COUNT 7.7 10^3/uL (4.3-11.0)
[2019-06-17 11:28] LABS: INR 1.1 (0.8-1.4); PROTHROMBIN TIME PATIENT 14.5 SEC (12.2-14.7)
[2019-06-17 11:37] LABS: ALANINE AMINOTRANSFERASE 79 U/L (0-55); ALBUMIN 4.2 GM/DL (3.2-4.5); ALKALINE PHOSPHATASE 97 U/L (40-136); BILIRUBIN,TOTAL 0.9 MG/DL (0.1-1.0); BUN/CREATININE RATIO 13; CALCIUM 9.6 MG/DL (8.5-10.1); CARBON DIOXIDE 22 MMOL/L (21-32); CHLORIDE 107 MMOL/L (98-107); CREATINE KINASE 65 U/L (30-200); CREATININE SERUM 1.26 MG/DL (0.60-1.30); GFR ESTIMATED 60; GLUCOSE 111 MG/DL (70-105); LIPASE 30 U/L (8-78); MAGNESIUM 1.9 MG/DL (1.6-2.4); POTASSIUM 3.8 MMOL/L (3.6-5.0); SODIUM 139 MMOL/L (135-145); TOTAL PROTEIN 8.5 GM/DL (6.4-8.2)
[2019-06-17 11:44] LABS: CREATINE KINASE MB 1.7 NG/ML (<6.6)
[2019-06-17 11:56] LABS: AMYLASE 59 U/L (25-125)
--- NOTE | 2019-06-17 12:08 | Diagnostic Imaging Report ---
INDICATION: Difficulty breathing. Frontal chest obtained at 11:45 a.m. and compared to 06/01/2018. FINDINGS: The heart is mildly enlarged. There is minimal central vascular prominence. The left lung appears clear. There is some infiltrate as well as volume loss in the right lung with elevation of right hemidiaphragm which is new compared to the prior study. There is a trace of pleural fluid on the right side. IMPRESSION: Cardiomegaly. There is new infiltrate and/or volume loss in right lung with elevation right hemidiaphragm which is new compared to the prior study. There appears to be some right pleural fluid. Followup is recommended. Dictated by: Dictated on workstation # [id number]
--- NOTE | 2019-06-17 12:10 | NUR ---
PT REPORTS STARTING TO SWEAT AND O2 SAT DECREASE TO 90% DENIES C/P. REPORTED TO DR EL O2 @2L APPLIED,
[2019-06-17] MEDS ORDERED: FUROSEMIDE 40 MG/4 ML INJ (LASIX) IVP ONE (12:15)
--- NOTE | 2019-06-17 12:28 | NUR ---
PT CONT TO BE DIAPHORETIC
--- NOTE | 2019-06-17 12:32 | NUR ---
PT REPORTS DOING METH A FEW DAYS AGO TO DR EL
[2019-06-17 12:39] LABS: ABG BASE EXCESS -3.5 MMOL/L (-2.5-2.5); ABG OXYGEN SATURATION 98 % (94-100); ABG PCO2 28 MMHG (35-45); ABG PH 7.46 (7.37-7.43); ABG PO2 84 MMHG (79-93); ABG TCO2 20.9 MMOL/L (21.0-31.0); ALLENS TEST YES-POS; INSPIRED O2 2L; VENTILATOR NO
[2019-06-17 12:40] LABS: PATIENT TEMP 35.8
[2019-06-17 13:20] LABS: TSH (THYROID ANALYZER) 7.66 UIU/ML (0.35-4.94)
[2019-06-17] MEDS ORDERED: IOHEXOL 350 MG/ML 100 ML (OMNIPAQUE 350) VIAL IV ONE (13:30)
[2019-06-17] MEDS ORDERED: NS 100 ML (IVPB) BAG IV ONE (13:30)
[2019-06-17] MEDS ORDERED: HOLD METFORMIN - RECEIVED CONTRAST 20 ML VIAL IV SCH (13:30)
[2019-06-17] MEDS ORDERED: cefTRIAXone FOR IV USE 1,000 MG in WATER (STERILE) FOR INJECTION 10 ML IV ONE (14:00)
[2019-06-17] MEDS ORDERED: AZITHROMYCIN INJECTION 500 MG in NS (IVPB) 250 ML IV ONE (14:00)
[2019-06-17 14:01] LABS: FREE T4 (FREE THYROXINE) 1.11 NG/DL (0.70-1.48)
--- NOTE | 2019-06-17 14:03 | Diagnostic Imaging Report ---
PROCEDURE: CT angiography of the chest with contrast. TECHNIQUE: Multiple contiguous axial images were obtained through the chest after uneventful bolus administration of intravenous contrast. 3D reconstructed CTA MIP acquisitions were also performed. Auto Exposure Controls were utilized during the CT exam to meet ALARA standards for radiation dose reduction. INDICATION: Shortness of air and clamminess. COMPARISON: No prior studies are available for comparison. FINDINGS: Evaluation of the pulmonary arterial system is without evidence of thromboembolism. No filling defects are seen within central, lobar, or segmental branches. Heart does appear to be enlarged. There is no pericardial fluid. There is a moderate-sized right pleural effusion layering dependently to a depth of approximately 7 cm. No definite axillary lymphadenopathy is seen. No definite mediastinal or hilar lymphadenopathy is detected. Parenchymal evaluation does show some compressive atelectasis/consolidation in the right lower lobe. Otherwise, the lungs are clear. The upper abdomen is unremarkable. IMPRESSION: 1. No evidence of pulmonary embolism. 2. Moderate-sized right pleural effusion with right lower lobe atelectasis/consolidation. Dictated by: Dictated on workstation # [id number]
[2019-06-17 14:15] LABS: BILIRUBIN,URINE NEGATIVE (NEGATIVE); CLARITY,URINE CLEAR; COLOR,URINE YELLOW; GLUCOSE, URINE (UA) NEGATIVE (NEGATIVE); KETONES,URINE NEGATIVE (NEGATIVE); LEUKOCYTE ESTERASE ,URINE 3+ (NEGATIVE); NITRITE,URINE NEGATIVE (NEGATIVE); PH,URINE 6.5 (5-9); PROTEIN,URINE 2+ (NEGATIVE); UROBILINOGEN,URINE NORMAL (NORMAL)
[2019-06-17] MEDS ORDERED: ENOXAPARIN 100 MG/1 ML (LOVENOX) SYR SC ONE (14:15)
[2019-06-17] MEDS ORDERED: ENOXAPARIN 60 MG/0.6 ML (LOVENOX) SYR SC ONE (14:15)
[2019-06-17] MEDS ORDERED: methylPREDNISolone 125 MG (Solu-MEDROL) VIAL IVP ONE (14:15)
[2019-06-17] MEDS ORDERED: cefTRIAXone 1,000 MG/2.86 ml vial (IM ONLY) ONE (14:16)
[2019-06-17 14:30] LABS: AMPHETAMINE SCREEN, URINE POSITIVE (NEGATIVE); BENZODIAZEPINES SCREEN URINE NEGATIVE (NEGATIVE); COCAINE SCREEN URINE NEGATIVE (NEGATIVE); METHAMPHETAMINE SCREEN URINE S POSITIVE (NEGATIVE)
[2019-06-17 14:31] LABS: BARBITURATE SCREEN URINE NEGATIVE (NEGATIVE); CANNABINOID SCREEN, URINE NEGATIVE (NEGATIVE); METHADONE STAT NEGATIVE (NEGATIVE); OPIATE SCREEN URINE NEGATIVE (NEGATIVE); OXYCODONE STAT NEGATIVE (NEGATIVE); PROPOXYPHENE STAT NEGATIVE (NEGATIVE); TRICYCLIC ANTIDEPRESSANTS SCRE NEGATIVE (NEGATIVE)
[2019-06-17 14:45] LABS: BACTERIA,URINE FEW /HPF; SQUAMOUS EPITHELIAL CELL,UR 0-2 /HPF; WBC,URINE TNTC /HPF
[2019-06-17] MEDS ORDERED: meTOprolol SUCCINATE 100 MG (TOPROL XL) TAB PO ONE (14:45)
--- NOTE | 2019-06-17 14:57 | NUR ---
DR GRIJALVA MED STUDENT TO SEE PT
--- NOTE | 2019-06-17 15:17 | History & Physical-Hospitalist ---
ANNIE ARAUJO [facility] 06/17/19 1517: History of Present Illness HPI/Chief Complaint pt is 53 y/o white male w/ hx of HTN, marijuana and methamphetamine abuse, who presents to the ED for "few" weeks of dyspnea which exacerbates when lying down. Pt is a poor historian; he told the ED doc he has been having productive cough but told me it has been several weeks of dry cough. Pt has not had a fever to his knowledge. ED did not report elevated temp either. Pt has been quiet diaphoretic per ED RN. Feels anxious at this time but Denies CP, N/V, lig htheadedness, dizziness, TIAN, dysuria or Abd pain. Pt is very restless, moving his legs and hands alot; states he has been this way for quite some time. States he first started using Marijuana when his brothers introduced it to him when he was 10 y/o; has been smoking it "on and off" since then. Started smoking meth last year "to lose weight"; last use was 10 days ago according to pt; states he has used meth about "6-7 times in the past year". States he stopped drinking ETOH 15 years ago "because it was bad" for him. 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 Pt has seen Dr. King for psychiatry, and states he has been on Seroquel, cannot recall why he was on the medication thought, says "I used to have thoughts that weren't real". Has also seen PRODUCTION CLERKS SUPERVISOR Nazario [facility]ana [facility] his HTN, says he has not been compliant with his meds. Notes he is supposed to be starting an unknown medication for his thyroid but has not yet done so Source: patient, RN/MD Exam Limitations: other (Poor historian) Date Seen 06/17/19 Time Seen by a Provider: 14:30 Attending Physician Nitza Grijalva DO PCP [facility] Referring Physician Date of Admission Jun 17, 2019 at 14:16 Home Medications & Allergies Home Medications Reviewed patient Home Medication Reconciliation performed by pharmacy medication reconciliations glass technician and/or nursing. Patients Allergies have been reviewed. Allergies Allergies Coded Allergies No Known Drug Allergies (Unverified10/02/15) Past Jiqorhq-Rrzhri-Lmnsne Hx Past Med/Social Hx: Reviewed and Corrections made Patient Social History Marrital Status: Number of Children: 2 Number of living children: 2 Living Status: Homeless, lives in his car Employed/Student: unemployed Alcohol Use: Denies Use Recreational Drug Use: Yes (MARIJUANA, METH--DENIES IV USE) Drug of Choice: MARIJUANA, METH- smokes it, DENIES IV USE Smoking Status: Never a Smoker Recent Foreign Travel: No Contact w/other who traveled: No Recent Hopitalizations: No Recent Infectious Disease Expo: No Immunizations Up To Date Tetanus Booster (TDap): Unknown Past Medical History Surgeries: Abdominal Cardiac: Hypertension (non-compliant with home meds) Reproductive: No Genitourinary: Kidney Stones History of Blood Disorders: No Family History No Pertinent Family Hx, Cancer (mother-unspecidied, passed last august), Diabetes (mother), Hypertension (mother and father, and brother) Review of Systems Constitutional: see HPI Respiratory: see HPI Cardiovascular: see HPI Gastrointestinal: see HPI Skin: see HPI Psychiatric/Neurological: See HPI All Other Systems Reviewed Negative Unless Noted: Yes Physical Exam Physical Exam Vital Signs Vital Signs - First Documented 06/17/19 06/17/19 11:00 12:05 Temp 35.8 Pulse 112 Resp 25 B/P (MAP) 172/134 (147) Pulse Ox 97 O2 Delivery Nasal Cannula O2 Flow Rate 2.00 Capillary Refill : Less Than 3 Seconds Height, Weight, BMI Height: 6'4.00" Weight: 270lbs. oz. 122.453905gb; 40.00 BMI Method:Stated General Appearance: Anxious, Other (has a albanian, abdominal obesity, very twitchy, restless, difficulty remembering, does not make direct eye contact, darting gaze) Eyes: Right Eye Abnormal Pupil (Dialated, mild); Bilateral Eye Normal Inspection HEENT: PERRL/EOMI Neck: Normal Inspection Respiratory: Chest Non Tender, Lungs Clear, Normal Breath Sounds, No Accessory Muscle Use, No Respiratory Distress, Decreased Breath Sounds ( decreased breathsounds to RLL) Cardiovascular: Regular Rate, Rhythm, No Edema, No Gallop, No JVD, No Murmur, Normal Peripheral Pulses Neurologic/Psychiatric: Alert, Oriented x3, Other Skin: Normal Color, Warm/Dry, Other (no track billings, does have a few abrasions on bilat LE. ) Results Results/Procedures Labs Laboratory Tests 06/17/19 11:05 Patient resulted labs reviewed. Imaging: Reviewed Imaging Films, Reviewed Imaging Report Assessment/Plan Admission Diagnosis Admission Status: Observation Assessment and Plan Restless, Anxious Drug screen: (+) for amphetamines and methamphetamines Dyspnea CXR Per Radiologist: 1. No evidence of PE 2. Moderate sized R pleural effusion with RLL atelectasis/consolidation Start on ABX for pneumonia Elevated BNP and troponin, HTN Consult Dr. Maya- busy in a procedure at this time, started pt on Lovenox and Lasix Per ED: EKG shows sinus tacky, LVH very hard to distinguish p waves Start on Lovenox and Metoprolol Proteinuria w/ normal BUN & cr Evaluate for DM, monitor kidney function Elevated TSH w/ normal T4 Monitor free T4 and TSH Consider methimazole +RBC and Leukocyte esterase in UA Urine microscopy-evaluate for UTI NITZA GRIJALVA DO 06/17/192058: Past Mkzsfyg-Egyadu-Pgcvad Hx Past Med/Social Hx: Reviewed Nursing Past Med/Soc Hx Physical Exam Physical Exam General Appearance: Chronically ill Respiratory: Decreased Breath Sounds ( decreased breathsounds to RLL) Assessment/Plan Admission Diagnosis Assessment: Right large pleural effusion Infiltrate RLL Meth use Mental illness Plan: ABx Dr Guzmán consultation Admission Status: Inpatient Order (span 2 midnights) Reason for Inpatient Admission: Pleural effusion in need of thoracentesis with hypoxia noted Diagnosis/Problems Diagnosis/Problems (1) Pleural effusion on right Status: Acute (2) RLL pneumonia Status: Acute Qualifiers: Pneumonia type: due to unspecified organism Qualified Codes: J18.1 - Lobar pneumonia, unspecified organism (3) Hypertension Status: Chronic Qualifiers: Hypertension type: essential hypertension Qualified Codes: I10 - Essential (primary) hypertension (4) Methamphetamine abuse Status: Chronic Supervisory-Addendum Brief Verification & Attestation Participated in pt care: history, MDM, physical Personally performed: exam, history, MDM, supervision of care Care discussed with: Medical Student Procedures: n/a Results interpretation: Verified all documentation Verification and Attestation of Medical Student E/M Service A medical student performed and documented this service in my presence. I rev iewed and verified all information documented by the medical student and made modifications to such information, when appropriate. I personally performed the physical exam and medical decision making. Nitza Grijalva, Jun 17, 2019,20:59 ANNIE ARAUJO [facility] Jun 17, 2019 15:17 NITZA GRIJALVA DO Jun 17, 2019 20:59
--- NOTE | 2019-06-17 18:00 | NUR ---
DR GRIJALVA HERE TO SEE PT
--- NOTE | 2019-06-17 18:08 | NUR ---
DR GLASS HERE TO SEE PT
--- NOTE | 2019-06-17 18:30 | NUR ---
PT HAS HAD APPROX 1400CC OUT FOR ER ADMISSION
[2019-06-17] MEDS ORDERED: CATHETER FLUSH 10 ML SYR IV PRN (19:45)
[2019-06-17] MEDS ORDERED: FUROSEMIDE 40 MG/4 ML INJ (LASIX) IV SCH (20:00)
[2019-06-17] MEDS ORDERED: methylPREDNISolone 125 MG (Solu-MEDROL) VIAL IV SCH (20:00)
[2019-06-17] MEDS ORDERED: PIPERACILLIN/TAZO 4.5 GM/NS 100 ML IV NR ×2 (20:00)
[2019-06-17] MEDS: CATHETER FLUSH 10 ML SYR IV SCH (20:44)
[2019-06-17] MEDS: LABETALOL HCL 20 MG/4 ML VIAL IV PRN (20:46)
[2019-06-17] MEDS ORDERED: RT-ALBUTEROL/IPRATROPIUM 3 ML (DUONEB) VIAL INH PRN (21:00)
--- NOTE | 2019-06-17 22:19 | NUR ---
THIS NURSE NOTIFIED DR GRIJALVA PT BP IS 166/106 EVEN AFTER GIVING PRN LABETOLOL AT 2044. ORDERS GIVEN FOR CLONIDINE AND CIWA WITHDRAWAL PROTOCOL.
[2019-06-17] MEDS ORDERED: 1/2 NS IV SOLUTION 1,000 ML IV PRN (22:34)
[2019-06-17] MEDS ORDERED: ONDANSETRON 4 MG/2 ML (SDV) Z0FRAN IV PRN (22:45)
[2019-06-17] MEDS ORDERED: ANTACID SUSP 30 ML UDC (MYLANTA) PO PRN (22:45)
[2019-06-17] MEDS ORDERED: SENNA W/DOCUSATE (SENOKOT S) TABLET PO PRN (22:45)
[2019-06-17] MEDS ORDERED: LORazepam INJ 2 MG/ML (ATIVAN) VIAL IV PRN (22:45)
[2019-06-17] MEDS ORDERED: D5 1/2 NS 1000 ML IV SOLUTION 1,000 ML IV PRN (22:45)
[2019-06-17] MEDS ORDERED: ONDANSETRON 4 MG (ZOFRAN) ORAL DISSOLVE TAB SL PRN (22:45)
[2019-06-17] MEDS ORDERED: LORazepam INJ 2 MG/ML (ATIVAN) VIAL IM/IV PRN (22:45)
[2019-06-17] MEDS ORDERED: LORazepam 1 MG (ATIVAN) TAB PO PRN (22:45)
[2019-06-17] MEDS ORDERED: cloNIDine 0.1 MG (CATAPRES) TAB PO PRN (23:00)
[2019-06-18] VITALS (18 sets, daily range): BP systolic 132–163; BP diastolic 80–118
--- NOTE | 2019-06-18 | Consultation-Cardiology ---
HPI-Cardiology Cardiology Consultation: Date of Consultation 06/18/19 Date of Admission Attending Physician Nitza Quintero DO Admitting Physician Mal Gage - [facility] Of Consulting Physician Ellis MAYA MD HPI: Time Seen by a Provider: 17:00 Chief Complaint: Late entry, patient was seen at 5 p.m. in the afternoon. Shortness of breath. This is a 53-year-old gentleman who has history of hypertension. He presents with worsening shortness of breath for the last one week with productive cough. No chest pain, fever. Also has bilateral lower extremity swelling. Denies any cardiac history. Previous active smoking. Currently active meth use. Patient is homeless. No significant family history. Patient denies syncope, near- syncope, palpitation. Review of Systems-Cardiology Review of Systems Constitutional: As described under HPI; No As described under HPI, No no symptoms reported, No chills, No fever, No lightheadedness Eyes: No As described under HPI, No no symptoms reported, No blindness, No blurred vision, No contact lenses, No drainage, No decreased acuity, No foreign body sensation, No pain, No vision change Ears/Nose/Throat: No As described under HPI, No no symptoms reported, No chronic hearing loss, No ear discharge, No ear pain, No nasal drainage, No ulcerations Respiratory: No no symptoms reported; As described under HPI; No As described under HPI, No cough; orthopnea; No shortness of breath, No SOB with excertion Cardiovascular: No no symptoms reported; As described under HPI; No As described under HPI, No chest pain, No edema, No irregular heart rate, No light headedness, No palpitations Gastrointestinal: No no symptoms reported, No As described under HPI, No abdom en distended, No abdominal pain, No blood streaked bowels, No constipation, No diarrhea, No nausea, No vomiting, No stool coloration changes Genitourinary: No As described under HPI, No burning, No dysuria, No discharge, No frequency, No flank pain, No hematuria, No urgency Skin: No rash, No skin related problems, No ulcerations Psychiatric/Neurological: No anxiety, No depression, No seizure, No focal weakness, No syncope Hematologic: No bleeding abnormalities All Other Systems Reviewed Negative Unless Noted: Yes HXO-Kwqcjb-Svkcjd Hx Patient Social History Marrital Status: Number of Children: 2 Number of living children: 2 Living Status: Homeless, lives in his car Employed/Student: unemployed Alcohol Use: Denies Use Recreational Drug Use: Yes (MARIJUANA, METH--DENIES IV USE) Drug of Choice: MARIJUANA, METH- smokes it, DENIES IV USE Smoking Status: Never a Smoker Recent Foreign Travel: No Recent Infectious Disease Expo: No Hospitalization with Isolation: Denies Immunizations Up To Date Tetanus Booster (TDap): Unknown Past Medical History PMH As described under Assessment. Allergies and Home Medications Allergies Coded Allergies: No Known Drug Allergies (Unverified , 10/02/15) Home Medications Amlodipine Besylate 10 Mg Tablet, 10 MG PO DAILY, (Reported) Patient Home Medication List Home Medication List Reviewed: Yes Physical Exam-Cardiology Physical Exam Vital Signs/I&O 06/19/19 06/19/19 06/19/19 06/19/19 06:23 07:00 08:00 09:00 Temp 36.4 Pulse 90 92 Resp 20 B/P (MAP) 157/90 (112) Pulse Ox 94 99 O2 Delivery Room Air Room Air Room Air 06/19/19 06/19/19 06/19/19 06/19/19 11:13 12:00 13:00 16:00 Temp 36.6 36.7 Pulse 85 92 93 Resp 22 18 B/P (MAP) 153/91 (111) 156/118 (131) Pulse Ox 96 95 98 O2 Delivery Room Air Room Air Room Air 06/19/19 00:00 Intake Total 1240 ml Balance 1240 ml Capillary Refill : Less Than 3 Seconds Constitutional: appears stated age, AAO x 3; No apparent distress; well- developed, well-nourished HEENT: PERRL; No discharge; hearing is well preserved, oral hygience is good; No ulceration, No xanthelasmas are seen Neck: No carotid bruit; carotid pulses are 2 + bilaterally Respiratory: chest is bilaterally symmetric, lungs clear to auscultation Cardiovascular: regular rate-rhythm, tachycardia, S1 and S2 Gastrointestinal: soft, round, audible bowel sounds; No spleenomegaly Rectal: deferred Extremities: normal range of motion, non-tender, normal inspection, pedal e nick; No clubbing, No cyanosis, No significant edema Neurologic/Psychiatric: no motor/sensory deficits, alert, normal mood/affect, oriented x 3, power is 5/5 both on sides Skin: normal color; No rash, No ulcerations Data Review Labs Laboratory Tests 06/19/19 04:34: White Blood Count 15.7H, Red Blood Count 4.94, Hemoglobin 13.5, Hematocrit 42, Mean Corpuscular Volume 84, Mean Corpuscular Hemoglobin 27, Mean Corpuscular H emoglobin Concent 32, Red Cell Distribution Width 16.0H, Platelet Count 270, Mean Platelet Volume 10.3, Neutrophils (%) (Auto) 76H, Lymphocytes (%) (Auto) 17, Monocytes (%) (Auto) 7, Eosinophils (%) (Auto) 0, Basophils (%) (Auto) 0, Neutrophils # (Auto) 11.9H, Lymphocytes # (Auto) 2.7, Monocytes # (Auto) 1.0, Eosinophils # (Auto) 0.0, Basophils # (Auto) 0.0, Neutrophils % (Manual) 75, Lymphocytes % (Manual) 22, Monocytes % (Manual) 3, Sodium Level 137, Potassium Level 3.8, Chloride Level 104, Carbon Dioxide Level 23, Anion Gap 10, Blood Urea Nitrogen 30H, Creatinine 1.30, Estimat Glomerular Filtration Rate 58, BUN/Creatinine Ratio 23, Glucose Level 118H, Calcium Level 9.3, Corrected Calcium 9.5, Total Bilirubin 0.5, Aspartate Amino Transf (AST/SGOT) 29, Alanine Aminotransferase (ALT/SGPT) 51, Alkaline Phosphatase 85, Total Protein 7.9, Albumin 3.8 Microbiology 06/17/19 Blood Culture - Preliminary, Resulted No growth 06/17/19 MRSA Screen - Final, Complete MRSA not isolated 06/17/19 Urine Culture - Final, Complete NO GROWTH ECG Impression ECG Initial ECG Rhythm: S.Tach A/P-Cardiology Assessment/Admission Diagnosis Shortness of breath, positive cardiac enzymes, Acute congestive heart failure, drug abuse, Hypertension, Sinus tachycardia Plan Echocardiogram, IV Lasix. CT angiography ruled out PE. Serial cardiac enzymes, will likely require coronary angiography. Drug abuse, defer to the primary team. Hypertension, will follow clinically. Thank you for your consultation. Please call me if you have any questions. Manan Maya MD, FACP, FACC, FSCAI, FHRS, CCDS Interventional Cardiology Cardiac Electrophysiology Vascular Medicine and Endovascular Interventions Clinical Quality Measures DVT/VTE Risk/Contraindication: Risk Factor Score Per Nursin RFS Level Per Nursing on Admit: 4+=Very High Ellis MAYA MD Jun 18, 2019 00:00
[2019-06-18] MEDS: PIPERACILLIN/TAZO 4.5 GM/NS 100 ML IV SCH ×6 (02:39→18:16)
[2019-06-18 03:23] LABS: BASOPHILS % (AUTO) 0 % (0-10); EOSINOPHILS % (AUTO) 0 % (0-10); HEMATOCRIT 41 % (40-54); HEMOGLOBIN 13.7 G/DL (13.3-17.7); LYMPHOCYTES # (AUTO) 0.7 X 10^3 (1.0-4.0); LYMPHOCYTES % (AUTO) 11 % (12-44); MEAN CORPUSCULAR HEMOGLOBIN 28 PG (25-34); MEAN CORPUSCULAR HGB CONC 33 G/DL (32-36); MEAN CORPUSCULAR VOLUME 84 FL (80-99); MEAN PLATELET VOLUME 10.3 FL (7.4-10.4); MONOCYTES # (AUTO) 0.1 X 10^3 (0.0-1.0); MONOCYTES % (AUTO) 2 % (0-12); NEUTROPHILS # (AUTO) 5.7 X 10^3 (1.8-7.8); NEUTROPHILS % (AUTO) 87 % (42-75); PLATELET COUNT 246 10^3/uL (130-400); RED CELL DISTRIBUTION WIDTH 15.3 % (10.0-14.5); WHITE BLOOD COUNT 6.5 10^3/uL (4.3-11.0)
[2019-06-18 03:42] LABS: BILIRUBIN,TOTAL 0.7 MG/DL (0.1-1.0); CALCIUM 9.6 MG/DL (8.5-10.1); CREATININE SERUM 1.39 MG/DL (0.60-1.30); MAGNESIUM 1.8 MG/DL (1.6-2.4); PHOSPHORUS 3.9 MG/DL (2.3-4.7); POTASSIUM 3.6 MMOL/L (3.6-5.0); TOTAL PROTEIN 8.4 GM/DL (6.4-8.2)
[2019-06-18] MEDS: POTASSIUM CL 10MEQ/50ML IVPB 50 ML IV SCH ×2 (04:10→05:45)
[2019-06-18] MEDS: LABETALOL HCL 20 MG/4 ML VIAL IV PRN (04:14)
--- NOTE | 2019-06-18 04:50 | Pulmonary Consultation ---
History of Present Illness History of Present Illness Date of Consultation 06/18/19 04:45 Time Seen by Provider: 04:45 Date of Admission Allergies and Home Medications Allergies Coded Allergies: No Known Drug Allergies (Unverified , 10/02/15) Home Medications Ciprofloxacin HCl 500 Mg Tablet, 500 MG PO BID Prescribed by: HILLARY OCAMPO on 06/01/182217 Lisinopril 10 Mg Tablet, 10 MG PO DAILY, (Reported) Metoprolol Succinate 50 Mg Tab.er.24h, 50 MG PO DAILY Prescribed by: HILLARY OCAMPO on 06/01/182217 Prednisone 20 Mg Tab, 40 MG PO DAILY Take 3 tabs(60mg)daily, decrease by 1/2 tab(10mg)daily. Prescribed by: HILLARY OCAMPO on 06/01/182217 Past Qgoqqkz-Zonclh-Fxyxbz Hx Past Med/Social Hx: Reviewed Nursing Past Med/Soc Hx Patient Social History Alcohol Use: Denies Use Recreational Drug Use: Yes (MARIJUANA, METH--DENIES IV USE) Drug of Choice: MARIJUANA, METH- smokes it, DENIES IV USE Smoking Status: Never a Smoker Recent Foreign Travel: No Contact w/Someone Who Travel: No Recent Infectious Disease Expo: No Recent Hopitalizations: No Immunizations Up To Date Tetanus Booster (TDap): Unknown Past Medical History Surgeries: Yes Abdominal Respiratory: No Cardiac: Yes Hypertension (non-compliant with home meds) Neurological: No Reproductive Disorders: No Genitourinary: Yes Kidney Stones Gastrointestinal: No Musculoskeletal: No Endocrine: No HEENT: No Cancer: No Psychosocial: No Integumentary: No Blood Disorders: No Family Medical History No Pertinent Family Hx, Cancer (mother-unspecidied, passed last august), Diabetes (mother), Hypertension (mother and father, and brother) Sepsis Event Evaluation Height, Weight, BMI Height: 6'4.00" Weight: 270lbs. oz. 122.133516oz; 40.00 BMI Method:Stated Exam Exam Vital Signs Date Time Temp Pulse Resp B/P (MAP) Pulse Ox O2 Delivery O2 Flow Rate FiO2 06/18/19 04:00 36.6 06/18/19 04:00 96 Nasal Cannula 1.50 06/18/19 03:00 87 26 152/103 (119) 94 Nasal Cannula 1.00 06/18/19 02:00 89 21 159/101 (120) 90 Nasal Cannula 1.00 06/18/19 01:39 89 27 152/110 (124) 96 Nasal Cannula 1.00 06/18/19 01:00 90 06/18/19 01:00 90 37 151/118 (129) 95 Room Air 06/18/19 00:00 86 34 155/100 (118) 90 Room Air 06/17/19 23:42 36.5 06/17/19 23:41 95 Room Air 06/17/19 23:18 89 18 159/105 (123) 92 Room Air 06/17/19 23:00 90 32 156/115 (129) 89 Room Air 06/17/19 22:00 88 29 166/106 (126) 94 Room Air 06/17/19 21:07 94 Room Air 06/17/19 21:00 90 16 124/99 (107) 96 Room Air 06/17/19 20:45 92 13 163/113 (130) 95 Room Air 06/17/19 20:30 92 11 159/111 (127) 95 Room Air 06/17/19 20:20 35.8 112 97 21 06/17/19 20:15 92 30 163/110 (127) 95 Room Air 06/17/19 20:03 92 8 156/116 (129) 94 Room Air 06/17/19 20:00 93 Room Air 06/17/19 19:45 96 166/112 (130) 95 Room Air 06/17/19 19:30 95 21 157/105 (122) 96 Room Air 06/17/19 19:20 93 Room Air 06/17/19 19:18 92 06/17/19 19:13 36.6 91 15 158/110 (126) 94 Room Air 06/17/19 19:06 89 18 159/107 (147) 97 Nasal Cannula 2.00 06/17/19 12:05 89 Nasal Cannula 2.00 06/17/19 11:00 35.8 112 25 172/134 (147) 97 I & O 06/18/19 07:00 Intake Total 720 ml Output Total 2850 ml Balance -2130 ml Height & Weight Height: 6'4.00" Weight: 270lbs. oz. 122.839071wg; 40.00 BMI Method:Stated General Appearance: Chronically ill HEENT: PERRL/EOMI, Other (POOR DENTITION) Neck: Normal Inspection; No Carotid Bruit, No JVD Respiratory: Decreased Breath Sounds ( decreased breathsounds to RLL) Cardiovascular: No JVD, No Murmur, Normal Peripheral Pulses, Tachycardia Capillary Refill: Less Than 3 Seconds Extremity: Pedal Edema (1+ BILATERALLY. ) Neurologic/Psychiatric: Alert, Oriented x3, No Motor/Sensory Deficits, consultant internship II- XII Norm as Tested Skin: Normal Color, Warm/Dry, Other (MUJLTIPLE SUPERFICIAL SCRATCHES TO BILATERAL LOWER LEGS. NO SIGNS OF INFECTION. ) Results Lab Laboratory Tests 06/17/19 11:05 06/18/19 03:05 CHELA GUEVARA DO Jun 18, 2019 04:49
[2019-06-18 05:05] LABS: LYMPHOCYTES % (MANUAL) 12 %; MONOCYTES % (MANUAL) 1 %; NEUTROPHILS % (MANUAL) 87 %
[2019-06-18 05:24] LABS: ABG BASE EXCESS 0.4 MMOL/L (-2.5-2.5); ABG OXYGEN SATURATION 97 % (94-100); ABG PCO2 29 MMHG (35-45); ABG PH 7.51 (7.37-7.43); ABG PO2 89 MMHG (79-93); ABG TCO2 24.2 MMOL/L (21.0-31.0)
[2019-06-18 05:25] LABS: ALLENS TEST POSITIVE
[2019-06-18 05:26] LABS: INSPIRED O2 1.5L/NC; PATIENT TEMP 36.4; VENTILATOR NO
[2019-06-18] MEDS ORDERED: MAGNESIUM 1 GM/100 ML IVPB 100 ML IV SCH (06:00)
[2019-06-18] MEDS ORDERED: POTASSIUM CL 10MEQ/50ML IVPB 50 ML IV SCH (06:00)
[2019-06-18] MEDS ORDERED: KCL 20 MEQ TAB (K-DUR) PO SCH (06:00)
[2019-06-18] MEDS: ENOXAPARIN 300 MG/3 ML (LOVENOX) MULTI-DOSE VIAL SQ SCH ×2 (06:01→16:33)
[2019-06-18] MEDS: CATHETER FLUSH 10 ML SYR IV SCH ×3 (06:01→22:12)
[2019-06-18] MEDS: RT-ALBUTEROL/IPRATROPIUM 3 ML (DUONEB) VIAL INH SCH ×4 (06:57→19:12)
--- NOTE | 2019-06-18 07:46 | Diagnostic Imaging Report ---
CHEST 1 VIEW, AP/PA ONLY Indication: Pneumonia, chest pain Comparison: 06/17/2019 Findings: Stable small right pleural effusion and right basilar pulmonary opacities. Stable enlargement of the cardiac silhouette. No pneumothorax. Impression: 1. Stable exam with small right pleural effusion and right basilar pulmonary opacities. No adverse development. Dictated by: Dictated on workstation # [id number]
[2019-06-18] MEDS ORDERED: AZITHROMYCIN 500 MG/NS 250 ML IVPB IV SCH ×2 (09:00)
--- NOTE | 2019-06-18 09:10 | Progress Note - Hospitalist ---
ANNIE ARAUJO [facility] 06/18/19 0909: Subjective HPI/CC On Admission Date Seen by Provider: Jun 18, 2019 Time Seen by Provider: 08:30 Subjective/Events-last exam BP improved this AM pt is still restless Breathing improved cough improved He was not wearing his O2 nasal cannula this AM EKG at 7:30 AM showed NSR and inverted T waves in all leads Pt to go to cath laboratory technician this AM Review of Systems HEENT: No Head Aches Pulmonary: No Dyspnea, No Cough Cardiovascular: No: Chest Pain, Palpitations Gastrointestinal: No: Nausea, Vomiting Focused Exam Lactate Level 06/17/19 12:37: Lactic Acid Level 0.92 Objective Exam Vital Signs Vital Signs Date Time Temp Pulse Resp B/P (MAP) Pulse Ox O2 Delivery O2 Flow Rate FiO2 06/18/19 08:00 86 21 163/93 (116) 95 Nasal Cannula 1.00 06/18/19 04:00 36.6 06/17/19 20:20 21 Capillary Refill : Less Than 3 Seconds General Appearance: No Apparent Distress, WD/WN Respiratory: Chest Non Tender, Crackles Cardiovascular: Regular Rate, Rhythm, No Edema, No Gallop, No JVD, No Murmur, Normal Peripheral Pulses Extremity: Normal Capillary Refill Neurologic/Psychiatric: Alert, Oriented x3 Results/Procedures Lab Laboratory Tests 06/17/19 11:05 06/18/19 03:05 Patient resulted labs reviewed. Imaging: Reviewed Imaging Films, Reviewed Imaging Report Assessment/Plan Assessment and Plan Assess & Plan/Chief Complaint Non-ST elevation MT Restless Drug screen: (+) for amphetamines and methamphetamines Right pleural effusion CHF Elevated BNP and troponin, HTN Consult Dr. Maya-analytical lab analyst this AM EKG NSR, inverted T waves in all leads Proteinuria w/ normal BUN & cr Evaluate for DM, monitor kidney function Elevated TSH w/ normal T4 Monitor free T4 and TSH Clinical Quality Measures DVT/VTE Risk/Contraindication: Risk Factor Score Per Nursin RFS Level Per Nursing on Admit: 4+=Very High NITZA GRIJALVA DO 06/18/192036: Subjective Subjective/Events-last exam Pt feels much better. Breathing better. Cardiac catheterization today. EKG reveals inverted T-waves and elevated Troponin. Elevated BNP. Still twitching but improved on the withdrawal protocol of Ativan. Diagnosis/Problems Diagnosis/Problems (1) NSTEMI (non-ST elevated myocardial infarction) (2) RLL pneumonia Status: Acute Qualifiers: Qualified Codes: J18.1 - Lobar pneumonia, unspecified organism (3) UTI (urinary tract infection) Status: Acute (4) Pleural effusion on right Status: Acute (5) Methamphetamine abuse Status: Chronic (6) Hypertension Status: Chronic Qualifiers: Qualified Codes: I10 - Essential (primary) hypertension (7) Elevated troponin Status: Acute (8) CHF (congestive heart failure) Status: Acute Supervisory-Addendum Brief Verification & Attestation Participated in pt care: history, MDM, physical Personally performed: exam, history, MDM, supervision of care Care discussed with: Medical Student Procedures: n/a Results interpretation: Verified all documentation Verification and Attestation of Medical Student E/M Service A medical student performed and documented this service in my presence. I reviewed and verified all information documented by the medical student and made modifications to such information, when appropriate. I personally performed the physical exam and medical decision making. Nitza Grijalva, Jun 18, 2019,20:37 ANNIE ARAUJO [facility] Jun 18, 2019 09:09 NITZA GRIJALVA DO Jun 18, 2019 20:37
[2019-06-18] MEDS ORDERED: AMLO10TA7 PO (09:20)
--- NOTE | 2019-06-18 09:20 | NUR ---
PATIENT STATES HE TAKES AMLODIPINE BLOOD PRESSURE MEDICATION ONCE DAILY IN THE MORNING. HE STATES HE DOES NOT TAKE ANYTHING OTC. I CALLED [facility] TO VERIFY HIS DOSE AND LAST FILL DATE: 05-02-19 LOPRESSOR 50MG BID #60 (HE DID NOT STATE HE WAS TAKING THIS) 05-13-19 AMLODIPINE 10MG DAILY #30
--- NOTE | 2019-06-18 12:50 | NUR ---
Patient transferred to [facility] per W/C accompanied byICU staff. Patient and family notified and understand transfer. Personal belongings with patient. Report given to THIS RN FROM TEDDY MONTENEGRO.
--- NOTE | 2019-06-18 12:54 | NUR ---
PT TO 4TH FLOOR VIA W/C AND 02 AT 1.5 LITERS PER NC REPORT GIVEN TO KEI MONTENEGRO. ALL PERSONAL BELONGINGS SENT WITH PT.
--- NOTE | 2019-06-18 17:44 | Cardiology Progress Note ---
Cardiology SOAP Progress Note Subjective: Still complains of shortness of breath. Objective: I&O/Vital Signs 06/19/19 06/19/19 06/19/19 06/19/19 06:23 07:00 08:00 09:00 Temp 36.4 Pulse 90 92 Resp 20 B/P (MAP) 157/90 (112) Pulse Ox 94 99 O2 Delivery Room Air Room Air Room Air 06/19/19 06/19/19 06/19/19 06/19/19 11:13 12:00 13:00 16:00 Temp 36.6 36.7 Pulse 85 92 93 Resp 22 18 B/P (MAP) 153/91 (111) 156/118 (131) Pulse Ox 96 95 98 O2 Delivery Room Air Room Air Room Air 06/19/19 00:00 Intake Total 1240 ml Balance 1240 ml Weight (Pounds): 283 Weight (Ounces): 0.6 Weight (Calculated Kilograms): 128.224374 Constitutional: AAO x 3 Respiratory: chest is bilaterally symmetric, lungs clear to auscultation Cardiovascular: regular rate-rhythm, S1 and S2 Gastrointestional: soft, round, audible bowel sounds Extremities: normal range of motion, non-tender, normal inspection, no lower extremity edema bilateral Neurologic/Psychiatric: no motor/sensory deficits, alert, normal mood/affect, oriented x 3 Skin: normal color Results/Procedures: Labs Laboratory Tests 06/19/19 04:34: White Blood Count 15.7H, Red Blood Count 4.94, Hemoglobin 13.5, Hematocrit 42, Mean Corpuscular Volume 84, Mean Corpuscular Hemoglobin 27, Mean Corpuscular Hemoglobin Concent 32, Red Cell Distribution Width 16.0H, Platelet Count 270, Mean Platelet Volume 10.3, Neutrophils (%) (Auto) 76H, Lymphocytes (%) (Auto) 17, Monocytes (%) (Auto) 7, Eosinophils (%) (Auto) 0, Basophils (%) (Auto) 0, Neutrophils # (Auto) 11.9H, Lymphocytes # (Auto) 2.7, Monocytes # (Auto) 1.0, Eosinophils # (Auto) 0.0, Basophils # (Auto) 0.0, Neutrophils % (Manual) 75, Lymphocytes % (Manual) 22, Monocytes % (Manual) 3, Sodium Level 137, Potassium Level 3.8, Chloride Level 104, Carbon Dioxide Level 23, Anion Gap 10, Blood Urea Nitrogen 30H, Creatinine 1.30, Estimat Glomerular Filtration Rate 58, BUN/Creatinine Ratio 23, Glucose Level 118H, Calcium Level 9.3, Corrected Calcium 9.5, Total Bilirubin 0.5, Aspartate Amino Transf (AST/SGOT) 29, Alanine Aminotransferase (ALT/SGPT) 51, Alkaline Phosphatase 85, Total Protein 7.9, Albumin 3.8 Microbiology 06/17/19 Blood Culture - Preliminary, Resulted No growth 06/17/19 MRSA Screen - Final, Complete MRSA not isolated 06/17/19 Urine Culture - Final, Complete NO GROWTH A/P: Assessment/Dx: Shortness of breath, Drug abuse Plan: Shortness of breath, IV Lasix, echocardiogram. Drug abuse, defer to Dr. Quintero. Thank you for your consultation. Please call me if you have any questions. Manan Maya MD, FACP, FACC, FSCAI, FHRS, CCDS Interventional Cardiology Cardiac Electrophysiology Vascular Medicine and Endovascular Interventions Focused Exam Lactate Level 06/17/19 12:37: Lactic Acid Level 0.92 Ellis MAYA MD Jun 18, 2019 17:44
[2019-06-19] VITALS (7 sets, daily range): BP systolic 135–157; BP diastolic 90–118
[2019-06-19] MEDS: LABETALOL HCL 20 MG/4 ML VIAL IV PRN ×2 (00:24→04:53)
[2019-06-19] MEDS: PIPERACILLIN/TAZO 4.5 GM/NS 100 ML IV SCH ×6 (02:06→17:50)
[2019-06-19] MEDS: CATHETER FLUSH 10 ML SYR IV SCH ×3 (04:55→20:28)
[2019-06-19] MEDS: ENOXAPARIN 300 MG/3 ML (LOVENOX) MULTI-DOSE VIAL SQ SCH ×2 (04:55→17:50)
[2019-06-19 04:56] LABS: BASOPHILS % (AUTO) 0 % (0-10); EOSINOPHILS % (AUTO) 0 % (0-10); HEMATOCRIT 42 % (40-54); HEMOGLOBIN 13.5 G/DL (13.3-17.7); LYMPHOCYTES # (AUTO) 2.7 X 10^3 (1.0-4.0); LYMPHOCYTES % (AUTO) 17 % (12-44); MEAN CORPUSCULAR HEMOGLOBIN 27 PG (25-34); MEAN CORPUSCULAR HGB CONC 32 G/DL (32-36); MEAN CORPUSCULAR VOLUME 84 FL (80-99); MEAN PLATELET VOLUME 10.3 FL (7.4-10.4); MONOCYTES % (AUTO) 7 % (0-12); NEUTROPHILS # (AUTO) 11.9 X 10^3 (1.8-7.8); NEUTROPHILS % (AUTO) 76 % (42-75); PLATELET COUNT 270 10^3/uL (130-400); WHITE BLOOD COUNT 15.7 10^3/uL (4.3-11.0)
[2019-06-19 05:21] LABS: ALBUMIN 3.8 GM/DL (3.2-4.5); BILIRUBIN,TOTAL 0.5 MG/DL (0.1-1.0); CALCIUM 9.3 MG/DL (8.5-10.1); CREATININE SERUM 1.3 MG/DL (0.60-1.30); POTASSIUM 3.8 MMOL/L (3.6-5.0); TOTAL PROTEIN 7.9 GM/DL (6.4-8.2)
[2019-06-19] MEDS: RT-ALBUTEROL/IPRATROPIUM 3 ML (DUONEB) VIAL INH SCH ×4 (06:25→18:24)
[2019-06-19 06:36] LABS: LYMPHOCYTES % (MANUAL) 22 %; MONOCYTES % (MANUAL) 3 %; NEUTROPHILS % (MANUAL) 75 %
--- NOTE | 2019-06-19 08:04 | Progress Note - Hospitalist ---
ANNIE ARAUJO [facility] 06/19/19 0804: Subjective HPI/CC On Admission Date Seen by Provider: Jun 19, 2019 Time Seen by Provider: 08:00 Subjective/Events-last exam Elevated BP 145/105 Elevated Pulse 98 Elevated BUN at 30, but Nl Cr Per Radiology: CXR still shows mild RLL patchy densities similar to yesterday, Pulm vascularity was normal, no Effusion or pneumothorax seen RN called [facility] to confirm pt's meds: Lopressor 50mg BID (last filled 05/02/19) Amlodipine 10mg Daily (last filled 05/03/19) Is Short of breath this AM Denies any other Sx Reviewed labs and imaging Pt had an order to be taken to cath lab tech yesterday but that has not been done Will check with cardiology Review of Systems HEENT: No Head Aches Pulmonary: Dyspnea; No Cough Cardiovascular: No: Chest Pain, Palpitations Genitourinary: No Dysuria Focused Exam Lactate Level 06/17/19 12:37: Lactic Acid Level 0.92 Objective Exam Vital Signs Vital Signs Date Time Temp Pulse Resp B/P (MAP) Pulse Ox O2 Delivery O2 Flow Rate FiO2 06/19/19 07:00 90 06/19/19 06:23 94 Room Air 06/19/19 04:00 36.4 26 145/105 (118) 06/18/19 20:47 1.50 06/17/19 20:20 21 Capillary Refill : Less Than 3 Seconds General Appearance: No Apparent Distress, Obese, Other (Agitated this AM, increased restlessness) HEENT: PERRL/EOMI Neck: Full Range of Motion, Normal Inspection Respiratory: Chest Non Tender, Lungs Clear, No Accessory Muscle Use, No Respiratory Distress, Decreased Breath Sounds (decreased breathsound to RLL) Cardiovascular: Regular Rate, Rhythm, No Edema, No Gallop, No JVD, No Murmur, Normal Peripheral Pulses Neurologic/Psychiatric: Alert, Oriented x3 Results/Procedures Lab Laboratory Tests 06/19/19 04:34 Patient resulted labs reviewed. Imaging: Reviewed Imaging Films, Reviewed Imaging Report Assessment/Plan Assessment and Plan Assess & Plan/Chief Complaint Elevated trop 06/17/19 @ 1102-0.032; 1552-0.037; 2138-WNL & no ST elevations on EKG suggestive of Non-ST elevation ischemic IN F/u with cardiology Restless, Agitated, Intrusive thoughts Drug screen: (+) for amphetamines and methamphetamines Psych eval May be beneficial Right pleural effusion, RLL opacities Mild RLL patchy densities similar to yesterday, Pulm vascularity was normal No Effusion or pneumothorax seen today CHF HTN Continue HTN meds Clinical Quality Measures DVT/VTE Risk/Contraindication: Risk Factor Score Per Nursin RFS Level Per Nursing on Admit: 4+=Very High NITZA GRIJALVA DO 06/19/192101: Subjective Subjective/Events-last exam Pt ejection fraction is 20% so he will require a cardiac catheterization an likely a Life Vest will be placed. Conferred with Dr. Maya Pt feels much better and chest X-ray improved Leukocytosis is now resolved Pleural effusion is now resolved Pt appears to have had some sort of meth use that maybe his family or friends brought in last night since he is back to twitching Assessment/Plan Assessment and Plan Assess & Plan/Chief Complaint Needs cath and lifevest due to decreased systolic function Supervisory-Addendum Brief Verification & Attestation Participated in pt care: history, MDM, physical Personally performed: exam, history, MDM, supervision of care Care discussed with: Medical Student Procedures: n/a Results interpretation: Verified all documentation Verification and Attestation of Medical Student E/M Service A medical student performed and documented this service in my presence. I reviewed and verified all information documented by the medical student and made modifications to such information, when appropriate. I personally performed the physical exam and medical decision making. Nitza Grijalva Jun 19, 2019,21:02 ANNIE ARAUJO [facility] Jun 19, 2019 08:04 NITZA GRIJALVA DO Jun 19, 2019 21:02
--- NOTE | 2019-06-19 08:54 | Diagnostic Imaging Report ---
INDICATION: Followup right lower lobe pneumonia. Time of exam 3:57 a.m. COMPARISON: Correlation is made with prior chest from one day earlier. FINDINGS: The heart is enlarged but stable. Patchy density in the right base is similar to yesterday's exam. The remainder of the lung morfin are clear. Pulmonary vascularity is normal. No effusion or pneumothorax is seen. IMPRESSION: No significant change in minimal right basilar patchy infiltrate or atelectasis when compared to examination one day earlier. Dictated by: Dictated on workstation # [id number]
[2019-06-19] MEDS ORDERED: AZITHROMYCIN 250 MG TAB (ZITHROMAX) PO SCH (09:00)
--- NOTE | 2019-06-19 16:02 | Pulmonary Progress Note ---
Subjective Time Seen by a Provider: 07:12 Subjective/Events-last exam Pt appear to be doing much better. Sepsis Event Evaluation Height, Weight, BMI Height: 6'4.00" Weight: 288lbs. 8.0oz. 130.200536wc; 40.00 BMI Method:Stated Focused Exam Lactate Level 06/17/19 12:37: Lactic Acid Level 0.92 Exam Exam Vital Signs Date Time Temp Pulse Resp B/P (MAP) Pulse Ox O2 Delivery O2 Flow Rate FiO2 06/19/19 13:00 92 06/19/19 12:00 36.6 85 22 153/91 (111) 95 Room Air 06/19/19 11:13 96 Room Air 06/19/19 09:00 Room Air 06/19/19 08:00 36.4 92 20 157/90 (112) 99 Room Air 06/19/19 07:00 90 06/19/19 06:23 94 Room Air 06/19/19 04:00 36.4 98 26 145/105 (118) 97 Room Air 06/19/19 01:00 89 06/19/19 00:50 89 135/90 (105) 06/19/19 00:20 36.7 96 28 143/102 (116) 98 Room Air 06/18/19 20:47 Nasal Cannula 1.50 06/18/19 20:28 37.3 98 28 152/97 (115) 93 Room Air 06/18/19 19:12 97 Room Air 06/18/19 19:00 96 06/18/19 16:43 36.8 88 22 132/80 (97) 94 Room Air 06/18/19 16:33 36.44152 06/18/19 16:00 96 Nasal Cannula 1.50 I & O 06/19/19 07:00 Intake Total 2140 ml Balance 2140 ml Height & Weight Height: 6'4.00" Weight: 288lbs. 8.0oz. 130.553647kh; 40.00 BMI Method:Stated General Appearance: No Apparent Distress, Obese, Other (Agitated this AM, increased restlessness) HEENT: PERRL/EOMI Neck: Full Range of Motion, Normal Inspection Respiratory: Chest Non Tender, Lungs Clear, No Accessory Muscle Use, No Respiratory Distress, Decreased Breath Sounds (decreased breathsound to RLL) Cardiovascular: Regular Rate, Rhythm, No Edema, No Gallop, No JVD, No Murmur, Normal Peripheral Pulses Capillary Refill: Less Than 3 Seconds Extremity: Normal Capillary Refill Neurologic/Psychiatric: Alert, Oriented x3 Skin: Normal Color, Warm/Dry, Other (MUJLTIPLE SUPERFICIAL SCRATCHES TO BILATERAL LOWER LEGS. NO SIGNS OF INFECTION. ) Results Lab Laboratory Tests 06/18/19 03:05 06/19/19 04:34 Assessment/Plan Assessment/Plan Cardiomyopathy -Echo EF 15-20% -Will need life vest -Cardiology following Right pleural effusion -Monitor Methamphetamine use CHELA GUEVARA DO Jun 19, 2019 16:02
--- NOTE | 2019-06-19 17:40 | Cardiology Progress Note ---
Cardiology SOAP Progress Note Subjective: Mild shortness of breath however improved. Objective: I&O/Vital Signs 06/19/19 06/19/19 06/19/19 06/19/19 06:23 07:00 08:00 09:00 Temp 36.4 Pulse 90 92 Resp 20 B/P (MAP) 157/90 (112) Pulse Ox 94 99 O2 Delivery Room Air Room Air Room Air 06/19/19 06/19/19 06/19/19 06/19/19 11:13 12:00 13:00 16:00 Temp 36.6 36.7 Pulse 85 92 93 Resp 22 18 B/P (MAP) 153/91 (111) 156/118 (131) Pulse Ox 96 95 98 O2 Delivery Room Air Room Air Room Air 06/19/19 00:00 Intake Total 1240 ml Balance 1240 ml Weight (Pounds): 288 Weight (Ounces): 8.0 Weight (Calculated Kilograms): 130.501501 Constitutional: appears stated age, AAO x 3; No apparent distress; well- developed, well-nourished Respiratory: chest is bilaterally symmetric, lungs clear to auscultation Cardiovascular: regular rate-rhythm, tachycardia, S1 and S2 Gastrointestional: soft, round, audible bowel sounds; No spleenomegaly Extremities: normal range of motion, non-tender, normal inspection, pedal edema; No clubbing, No cyanosis, No significant edema Neurologic/Psychiatric: no motor/sensory deficits, alert, normal mood/affect, oriented x 3, power is 5/5 both on sides Skin: normal color; No rash, No ulcerations Results/Procedures: Labs Laboratory Tests 06/19/19 04:34: White Blood Count 15.7H, Red Blood Count 4.94, Hemoglobin 13.5, Hematocrit 42, Mean Corpuscular Volume 84, Mean Corpuscular Hemoglobin 27, Mean Corpuscular Hemoglobin Concent 32, Red Cell Distribution Width 16.0H, Platelet Count 270, Mean Platelet Volume 10.3, Neutrophils (%) (Auto) 76H, Lymphocytes (%) (Auto) 17, Monocytes (%) (Auto) 7, Eosinophils (%) (Auto) 0, Basophils (%) (Auto) 0, Neutrophils # (Auto) 11.9H, Lymphocytes # (Auto) 2.7, Monocytes # (Auto) 1.0, Eosinophils # (Auto) 0.0, Basophils # (Auto) 0.0, Neutrophils % (Manual) 75, Lymphocytes % (Manual) 22, Monocytes % (Manual) 3, Sodium Level 137, Potassium Level 3.8, Chloride Level 104, Carbon Dioxide Level 23, Anion Gap 10, Blood Urea Nitrogen 30H, Creatinine 1.30, Estimat Glomerular Filtration Rate 58, BUN/Creatinine Ratio 23, Glucose Level 118H, Calcium Level 9.3, Corrected Calcium 9.5, Total Bilirubin 0.5, Aspartate Amino Transf (AST/SGOT) 29, Alanine Aminotransferase (ALT/SGPT) 51, Alkaline Phosphatase 85, Total Protein 7.9, Albumin 3.8 Microbiology 06/17/19 Blood Culture - Preliminary, Resulted No growth 06/17/19 MRSA Screen - Final, Complete MRSA not isolated 06/17/19 Urine Culture - Final, Complete NO GROWTH A/P: Assessment/Dx: Shortness of breath, positive cardiac enzymes, Acute systolic congestive heart failure, Severe cardiomyopathy drug abuse, Hypertension, Sinus tachycardia Plan: Non-STEMI, coronary angiography is recommended. Informed consent was taken from the patient. Likely tomorrow. Acute systolic congestive heart failure, IV Lasix. Echocardiogram 06/18/2019 demonstrates severe LV systolic dysfunction. Start carvedilol and lisinopril. Lifevest for primary prevention of sudden cardiac . Drug abuse, defer to the primary team. Hypertension, will follow clinically. Thank you for your consultation. Please call me if you have any questions. Manan Maya MD, FACP, FACC, FSCAI, FHRS, CCDS Interventional Cardiology Cardiac Electrophysiology Vascular Medicine and Endovascular Interventions Focused Exam Lactate Level 06/17/19 12:37: Lactic Acid Level 0.92 Ellis MAYA MD Jun 19, 2019 17:40
[2019-06-19] MEDS: CARVEDILOL 6.25 MG (COREG) TAB PO SCH (20:28)
[2019-06-20] VITALS (12 sets, daily range): BP systolic 131–163; BP diastolic 88–121
[2019-06-20] MEDS: PIPERACILLIN/TAZO 4.5 GM/NS 100 ML IV SCH ×2 (01:59)
[2019-06-20] MEDS: ENOXAPARIN 300 MG/3 ML (LOVENOX) MULTI-DOSE VIAL SQ SCH ×2 (04:23→17:35)
[2019-06-20] MEDS: CATHETER FLUSH 10 ML SYR IV SCH ×3 (04:23→20:10)
[2019-06-20 05:30] LABS: BASOPHILS # (AUTO) 0.1 10^3/uL (0.0-0.1); BASOPHILS % (AUTO) 1 % (0-10); EOSINOPHILS # (AUTO) 0.3 10^3/uL (0.0-0.3); EOSINOPHILS % (AUTO) 4 % (0-10); HEMATOCRIT 42 % (40-54); HEMOGLOBIN 13.5 G/DL (13.3-17.7); LYMPHOCYTES # (AUTO) 2.5 X 10^3 (1.0-4.0); LYMPHOCYTES % (AUTO) 30 % (12-44); MEAN CORPUSCULAR HEMOGLOBIN 27 PG (25-34); MEAN CORPUSCULAR HGB CONC 32 G/DL (32-36); MEAN CORPUSCULAR VOLUME 85 FL (80-99); MEAN PLATELET VOLUME 10.5 FL (7.4-10.4); MONOCYTES # (AUTO) 0.8 X 10^3 (0.0-1.0); MONOCYTES % (AUTO) 9 % (0-12); NEUTROPHILS # (AUTO) 4.7 X 10^3 (1.8-7.8); NEUTROPHILS % (AUTO) 57 % (42-75); PLATELET COUNT 222 10^3/uL (130-400); RED CELL DISTRIBUTION WIDTH 15.7 % (10.0-14.5); WHITE BLOOD COUNT 8.3 10^3/uL (4.3-11.0)
[2019-06-20 05:51] LABS: ALBUMIN 3.8 GM/DL (3.2-4.5); BILIRUBIN,TOTAL 0.9 MG/DL (0.1-1.0); CALCIUM 9.2 MG/DL (8.5-10.1); CREATININE SERUM 1.3 MG/DL (0.60-1.30); POTASSIUM 3.8 MMOL/L (3.6-5.0); TOTAL PROTEIN 7.5 GM/DL (6.4-8.2)
[2019-06-20] MEDS: RT-ALBUTEROL/IPRATROPIUM 3 ML (DUONEB) VIAL INH SCH (07:15)
--- NOTE | 2019-06-20 07:20 | Pulmonary Progress Note ---
Subjective Time Seen by a Provider: 07:19 Subjective/Events-last exam NO complications noted. Sepsis Event Evaluation Height, Weight, BMI Height: 6'4.00" Weight: 291lbs. 8.8oz. 132.692950im; 40.00 BMI Method:Stated Focused Exam Lactate Level 06/17/19 12:37: Lactic Acid Level 0.92 Exam Exam Vital Signs Date Time Temp Pulse Resp B/P (MAP) Pulse Ox O2 Delivery O2 Flow Rate FiO2 06/20/19 01:00 87 06/19/19 20:30 Room Air 06/19/19 20:00 36.5 95 16 156/111 (126) 97 Room Air 06/19/19 19:00 93 06/19/19 18:24 93 Room Air 06/19/19 16:00 36.7 93 18 156/118 (131) 98 Room Air 06/19/19 13:00 92 06/19/19 12:00 36.6 85 22 153/91 (111) 95 Room Air 06/19/19 11:13 96 Room Air 06/19/19 09:00 Room Air 06/19/19 08:00 36.4 92 20 157/90 (112) 99 Room Air I & O 06/20/19 07:00 Intake Total 2440 ml Balance 2440 ml Height & Weight Height: 6'4.00" Weight: 291lbs. 8.8oz. 132.214945ml; 40.00 BMI Method:Stated General Appearance: No Apparent Distress, Obese, Other (Agitated this AM, increased restlessness) HEENT: PERRL/EOMI Neck: Full Range of Motion, Normal Inspection Respiratory: Chest Non Tender, Lungs Clear, No Accessory Muscle Use, No Respiratory Distress, Decreased Breath Sounds (decreased breathsound to RLL) Cardiovascular: Regular Rate, Rhythm, No Edema, No Gallop, No JVD, No Murmur, Normal Peripheral Pulses Capillary Refill: Less Than 3 Seconds Extremity: Normal Capillary Refill Neurologic/Psychiatric: Alert, Oriented x3 Skin: Normal Color, Warm/Dry, Other (MUJLTIPLE SUPERFICIAL SCRATCHES TO BILATERAL LOWER LEGS. NO SIGNS OF INFECTION. ) Results Lab Laboratory Tests 06/19/19 04:34 06/20/19 04:39 Assessment/Plan Assessment/Plan Cardiomyopathy -Echo EF 15-20% -Will need life vest -Cardiology following Right pleural effusion secondary to CHF -Monitor Methamphetamine use I am going to sign off please call with any questions. No leukocytosis no fever. Infiltrate on CXR secondary to pulmonary edema from CHF. Will D/C Abx, berhane IVF . CHELA GUEVARA DO Jun 20, 2019 07:20
[2019-06-20] MEDS ORDERED: KCL 20 MEQ TAB (K-DUR) PO NR (07:29)
[2019-06-20] MEDS ORDERED: FUROSEMIDE 40 MG/4 ML INJ (LASIX) IVP NR (07:29)
--- NOTE | 2019-06-20 07:57 | NUR ---
DR. GRIJALVA NOTIFIED B/P 160/128.
[2019-06-20] MEDS: CARVEDILOL 6.25 MG (COREG) TAB PO SCH ×3 (08:02→20:10)
[2019-06-20] MEDS ORDERED: lisINopril 10 MG (PRINIVIL) TABLET PO SCH (09:00)
[2019-06-20] MEDS ORDERED: LIDOCAINE 1% INJ 20 ML 20 ML VIAL ONE (10:24)
[2019-06-20] MEDS ORDERED: HEParin (CATH LAB) 2,000 ML IV ONE (10:24)
--- NOTE | 2019-06-20 11:03 | Diagnostic Imaging Report ---
CLINICAL INDICATION: Followup right lower lobe pneumonia, CHF. EXAM: Portable chest x-ray upright view. COMPARISONS: Chest x-ray dated 06/19/2019. FINDINGS: Lungs/pleura: Stable mild right lung base atelectasis versus infiltrate. Otherwise, lungs are clear. There is no pneumothorax. There is no pleural effusion. Mediastinum: Unremarkable. Pulmonary vasculature: Unremarkable. Heart: Stable cardiomegaly. Bones/extrathoracic soft tissue: Unremarkable. IMPRESSION: 1: Stable chest x-ray exam with mild right basilar atelectasis versus infiltrate. 2: Stable mild cardiomegaly with no significant pulmonary vascular congestion. Dictated by: Dictated on workstation # [id number]
--- NOTE | 2019-06-20 11:22 | Progress Note - Hospitalist ---
[facility] 06/20/19 1121: Subjective HPI/CC On Admission Date Seen by Provider: Jun 20, 2019 Time Seen by Provider: 11:15 Subjective/Events-last exam Sinus tachycardia @ 122 Continued HTN @ 149/108 at this time Elevated pulse was given heparin this AM CXR shows mild RLL infiltrate, unchanged from yesterday--> pt has no fever or leukocytosis ABX discontinued Seen by Cardiology yesterday- Coronary Angiography was recommended Focused Exam Lactate Level 06/17/19 12:37: Lactic Acid Level 0.92 Objective Exam Vital Signs Vital Signs Date Time Temp Pulse Resp B/P (MAP) Pulse Ox O2 Delivery O2 Flow Rate FiO2 06/20/19 08:00 35.8 96 18 149/108 (122) 93 Room Air 06/18/19 20:47 1.50 06/17/19 20:20 21 Capillary Refill : Less Than 3 Seconds General Appearance: No Apparent Distress, WD/WN Results/Procedures Lab Laboratory Tests 06/20/19 04:39 Patient resulted labs reviewed. Imaging: Reviewed Imaging Films, Reviewed Imaging Report Assessment/Plan Assessment and Plan Assess & Plan/Chief Complaint Elevated trop 06/17/19 @ 1102-0.032; 1552-0.037; 2138-WNL & no ST elevations on EKG suggestive of Non-ST elevation ischemic [place] seen by Dr. Maya: recommends Coronary angiography, informed consent was obtained and angiography likely for tomorrow Acute systolic congestive heart failure, w/ EF 15-20% IV Lasix Lifevest for primary prevention of sudden cardiac per Dr. Maya Continued severe HTN Start carvedilol and lisinopril. Restless, Agitated, Intrusive thoughts Drug screen: (+) for amphetamines and methamphetamines Psych eval May be beneficial Clinical Quality Measures DVT/VTE Risk/Contraindication: Risk Factor Score Per Nursin RFS Level Per Nursing on Admit: 4+=Very High NITZA GRIJALVA DO 06/20/192105: Subjective Subjective/Events-last exam Pt undergoing cardiac cath today Appears to be twitching again unsure if he is taking Methamphetamine brought in from family again. Life vest will be fitted after that since ejection fraction is 20% Social work consult will be initiated because he wants to start disability process Diagnosis/Problems Diagnosis/Problems (1) NSTEMI (non-ST elevated myocardial infarction) (2) CHF (congestive heart failure) Status: Acute (3) Elevated troponin Status: Acute (4) HTN (hypertension) Status: Acute (5) Hypertension Status: Chronic Qualifiers: Qualified Codes: I10 - Essential (primary) hypertension (6) Methamphetamine abuse Status: Chronic (7) Pleural effusion on right Status: Acute (8) Poison mikey Status: Acute (9) RLL pneumonia Status: Acute Qualifiers: Qualified Codes: J18.1 - Lobar pneumonia, unspecified organism (10) UTI (urinary tract infection) Status: Acute (11) Urinary tract infection Status: Acute Supervisory-Addendum Brief Verification & Attestation Participated in pt care: history, MDM, physical Personally performed: exam, history, MDM, supervision of care Care discussed with: Medical Student Procedures: n/a Results interpretation: Verified all documentation Verification and Attestation of Medical Student E/M Service A medical student performed and documented this service in my presence. I reviewed and verified all information documented by the medical student and made modifications to such information, when appropriate. I personally performed the physical exam and medical decision making. Nitza Grijalva, Jun 20, 2019,21:06 [facility] Jun 20, 2019 11:21 NITZA GRIJALVA DO Jun 20, 2019 21:06
[2019-06-20] MEDS ORDERED: fentaNYL INJECTION 100 MCG/2 ML AMP ONE (12:40)
[2019-06-20] MEDS ORDERED: MIDAZOLAM 5 MG/5 ML (VERSED) VIAL ONE (12:40)
[2019-06-20] MEDS ORDERED: NS IV 1000 ML 1,000 ML ONE (12:53)
[2019-06-20] MEDS ORDERED: NS IV 1000 ML 1,000 ML IV SCH (13:15)
--- NOTE | 2019-06-20 13:36 | Cardiology Progress Note ---
Cardiology SOAP Progress Note Subjective: mild shortness of breath Objective: I&O/Vital Signs 06/20/19 06/20/19 06/20/19 06/20/19 07:00 07:15 07:15 08:00 Temp 36.5 35.8 Pulse 95 98 96 Resp 18 B/P (MAP) 149/108 (122) Pulse Ox 95 95 93 O2 Delivery Room Air Room Air 06/20/19 00:00 Intake Total 2440 ml Balance 2440 ml Weight (Pounds): 291 Weight (Ounces): 8.8 Weight (Calculated Kilograms): 132.529802 Constitutional: appears stated age, AAO x 3; No apparent distress; well- developed, well-nourished Respiratory: chest is bilaterally symmetric, lungs clear to auscultation Cardiovascular: regular rate-rhythm, tachycardia, S1 and S2 Gastrointestional: soft, round, audible bowel sounds; No spleenomegaly Extremities: normal range of motion, non-tender, normal inspection, pedal edema; No clubbing, No cyanosis, No significant edema Neurologic/Psychiatric: no motor/sensory deficits, alert, normal mood/affect, oriented x 3, power is 5/5 both on sides Skin: normal color; No rash, No ulcerations Results/Procedures: Labs Laboratory Tests 06/20/19 04:39: White Blood Count 8.3, Red Blood Count 4.93, Hemoglobin 13.5, Hematocrit 42, Mean Corpuscular Volume 85, Mean Corpuscular Hemoglobin 27, Mean Corpuscular Hemoglobin Concent 32, Red Cell Distribution Width 15.7H, Platelet Count 222, Mean Platelet Volume 10.5H, Neutrophils (%) (Auto) 57, Lymphocytes (%) (Auto) 30, Monocytes (%) (Auto) 9, Eosinophils (%) (Auto) 4, Basophils (%) (Auto) 1, Neutrophils # (Auto) 4.7, Lymphocytes # (Auto) 2.5, Monocytes # (Auto) 0.8, Eosinophils # (Auto) 0.3, Basophils # (Auto) 0.1, Sodium Level 140, Potassium Level 3.8, Chloride Level 105, Carbon Dioxide Level 23, Anion Gap 12, Blood Urea Nitrogen 25H, Creatinine 1.30, Estimat Glomerular Filtration Rate 58, BUN/Creatinine Ratio 19, Glucose Level 97, Calcium Level 9.2, Corrected Calcium 9.4, Total Bilirubin 0.9, Aspartate Amino Transf (AST/SGOT) 32, Alanine Aminotransferase (ALT/SGPT) 44, Alkaline Phosphatase 81, Total Protein 7.5, Albumin 3.8 Microbiology 06/17/19 Blood Culture - Preliminary, Resulted No growth 06/17/19 MRSA Screen - Final, Complete MRSA not isolated 06/17/19 Urine Culture - Final, Complete NO GROWTH A/P: Assessment/Dx: Shortness of breath, positive cardiac enzymes, Acute systolic congestive heart failure, Severe cardiomyopathy drug abuse, Hypertension, Sinus tachycardia Plan: Non-STEMI, coronary angiography done today shows mild to moderate disease with no focal severe stenosis. Cardiomyopathy is out of proportion to CAD. Likely nonischemic cardiomyopathy. dilated nonischemic cardiomyopathy, Acute systolic congestive heart failure, IV Lasix. Echocardiogram 06/18/2019 demonstrates severe LV systolic dysfunction. Start carvedilol and lisinopril. Lifevest for primary prevention of sudden cardiac . Drug abuse, defer to the primary team. Hypertension, will follow clinically. Thank you for your consultation. Please call me if you have any questions. Manan Maya MD, FACP, FACC, FSCAI, FHRS, CCDS Interventional Cardiology Cardiac Electrophysiology Vascular Medicine and Endovascular Interventions Ellis MAYA MD Jun 20, 2019 13:36
--- NOTE | 2019-06-20 13:38 | Cardiac Procedure Note-CS/ASA ---
Pre-Procedure Note Pre-Op Procedure Note H&P Reviewed The H&P was reviewed, patient examined and no changes noted. Date H&P Reviewed: Jun 20, 2019 Time H&P Reviewed: 12:00 Conscious Sedation Pre-Proced Time 12:00 ASA Score 3 For ASA 3 and 4: Consider anesthesia and medical clearance. Also, for patients with a history of failed moderate sedation consider anesthesia. Airway Lungs Heart ASA score ASA 1: a normal healthy patient ASA 2: a patient with a mild systemic disease (mid diabetes, controlled hypertension, obesity ASA 3: a patient with a severe systemic disease that limits activity (angina, COPD, prior Myocardial infarction) ASA 4: a patient with an incapacitating disease that is a constant threat to life (CHF, renal failure) ASA 5: a moribund patient not expected to survive 24 hrs. (ruptured aneurysm) ASA 6: a declared brain- patient whose organs are being harvested. For emergent operations, add the letter E after the classification Mallampati Classification Grade 1 Sedation Plan Analgesia, Amnesia, Plan communicated to team members, Discussed options with patient/fam, Discussed risks with patient/fam The patient is an appropriate candidate to undergo the planned procedure, sedation, and anesthesia. The patient immediately re-assessed prior to indication. Ellis GLASS MD Jun 20, 2019 13:38
--- NOTE | 2019-06-20 13:44 | Coronary Angiography Report ---
Coronary Angiography Report DATE OF PROCEDURE: 06/20/19 INDICATION: 1. Acute systolic congestive heart failure with mildly positive troponin. 2. New onset cardiomyopathy PREOPERATIVE DIAGNOSIS: 1. Acute systolic congestive heart failure with mildly positive troponin. 2. New onset cardiomyopathy POSTOPERATIVE DIAGNOSIS: mild to moderate CAD. moderate LV systolic dysfunction. HISTORY: This is a 53-year-old gentleman who presented with shortness of breath. History of drug abuse. Acute systolic congestive heart failure with echocardiogram showing an EF of 20-25 percent with global hypokinesis. One troponin was borderline positive. New onset cardiomyopathy; coronary evaluation is recommended. Therefore, the patient was scheduled for coronary angiography. PROCEDURES PERFORMED: 1.Coronary angiography. 2.Left heart catheterization. COMPLICATIONS: None. SPECIMENS: None. ESTIMATED BLOOD LOSS: 10 mL ANESTHESIA: Conscious sedation ANTICOAGULATION:none. CONTRAST: 60 mL. FLUOROSCOPY: 3.2 mins. FLOUROSCOPY DOSE: 703 mgy. PROCEDURE DETAILS: The patient is a 53 male and was brought to the manufacturing lab technician after informed consent was taken. All the risks and complications were explained in detail; this included the risk of bleeding, vascular damage, stroke, MT and even . The patient was draped and prepped in the usual sterile fashion. Access was gained in the right femoral artery with a 5 Turkmen sheath. Coronary angiography and left heart catheterization was performed with a JR4 and JL4 catheter. FINDINGS: 1.Left main: patent. 2.LAD: mild ostial disease. Stenosis severity 30 percent. ODIN 3 flow. 3.Left circumflex artery: ostial ramus has 30-40 percent stenosis. ODIN-3 flow. Ostial left circumflex artery has 20 percent stenosis. ODIN-3 flow. 4.RCA: luminal irregularities. 5.Left heart catheterization: LV pressure 146/18 mmHg. LVEDP 26 mmHg. Aortic pressure 131/100 mmHg. No gradient across the aortic valve. Mildly reduce LV systolic function with an EF of 40-45 percent. Global hypokinesis. CONCLUSIONS: mild to moderate CAD. Dilated nonischemic cardiomyopathy. Manan Maya MD, FACP, FACC, [facility] Interventional Cardiology Ellis MAYA MD Jun 20, 2019 13:44
--- NOTE | 2019-06-20 13:57 | NUR ---
Pt arrives via bed with cathode ray tube salvage processor RNx2. Right groin benign with no s/s hematoma or swelling. Bilateral feet are pale and cool the the touch, normal per patient. Assuming care of this patient for recovery of heart cath the be transferred back to room 412 after bedrest.
[2019-06-20] MEDS ORDERED: FUROSEMIDE 40 MG/4 ML INJ (LASIX) ONE (15:02)
[2019-06-20] MEDS: FUROSEMIDE 40 MG/4 ML INJ (LASIX) IVP SCH (15:19)
--- NOTE | 2019-06-20 15:23 | NUR ---
Notified Dr. Maya of BP of 155/120. New orders received for lisinopril 5 mg daily, first dose NOW and carvedilol 6.25 bid, first dose NOW. Pharmacy notified.
[2019-06-20] MEDS: lisINopril 5 MG (PRINIVIL) TABLET PO SCH (16:10)
--- NOTE | 2019-06-20 17:10 | NUR ---
Report given to Gricelda MONTENEGRO. Visualized groin with Gricelda RN at bedside after transport. Pt transported via bed with no difficulties.
--- NOTE | 2019-06-20 17:17 | NUR ---
PT CAME BACK FORM ICU AT 1710. WILL MONITOR CATH SITE AND VITALS FOR NEXT HOUR THEN Q4.
[2019-06-21] MEDS: ENOXAPARIN 300 MG/3 ML (LOVENOX) MULTI-DOSE VIAL SQ SCH ×2 (04:42→17:15)
[2019-06-21] MEDS: CATHETER FLUSH 10 ML SYR IV SCH ×2 (06:25→15:28)
[2019-06-21 08:00] VITALS: BP 148/97
--- NOTE | 2019-06-21 08:07 | Progress Note - Hospitalist ---
[facility] 06/21/19 0806: Subjective HPI/CC On Admission Date Seen by Provider: Jun 21, 2019 Time Seen by Provider: 08:03 Subjective/Events-last exam Coronary angiography yesterday, no pain or erythema to incision site Denies any pain Has been voiding and having BMs normally Feel ready to go home Talked about Drug cessation, pt expresses desire to quit Says he will be living with his girlfriend after discharge Review of Systems HEENT: No Head Aches Pulmonary: No Dyspnea, No Cough Cardiovascular: No: Chest Pain, Palpitations Gastrointestinal: No: Nausea, Vomiting, Diarrhea, Constipation Objective Exam Vital Signs Vital Signs Date Time Temp Pulse Resp B/P (MAP) Pulse Ox O2 Delivery O2 Flow Rate FiO2 06/21/19 09:35 Room Air 06/21/19 08:00 35.9 95 18 148/97 (114) 97 06/18/19 20:47 1.50 06/17/19 20:20 21 Capillary Refill : Less Than 3 Seconds General Appearance: No Apparent Distress, WD/WN HEENT: Normal ENT Inspection Neck: Normal Inspection Respiratory: Chest Non Tender, Lungs Clear, Normal Breath Sounds, No Accessory Muscle Use, No Respiratory Distress Cardiovascular: Regular Rate, Rhythm, No Edema, No Gallop, No JVD, No Murmur, Normal Peripheral Pulses Gastrointestinal: Non Tender Extremity: Normal Capillary Refill, Normal Inspection Neurologic/Psychiatric: Alert, Oriented x3 Results/Procedures Lab Patient resulted labs reviewed. Imaging: Reviewed Imaging Films, Reviewed Imaging Report Assessment/Plan Assessment and Plan Assess & Plan/Chief Complaint Elevated trop 06/17/19 @ 1102-0.032; 1552-0.037; 2138-WNL & no ST elevations on EKG suggestive of Non-ST elevation ischemic [place] Coronary angiography yesterday: mild to moderate disease with no focal severe stenosis. Per Dr. Maya Cardiomyopathy is out of proportion to CAD. Likely nonischemic cardiomyopathy. Acute systolic congestive heart failure, w/ EF 15-20% IV Lasix Lifevest for primary prevention of sudden cardiac per Dr. Maya Continued HTN Start carvedilol and lisinopril. Plan for discharge soon after Lifevest Clinical Quality Measures DVT/VTE Risk/Contraindication: Risk Factor Score Per Nursin RFS Level Per Nursing on Admit: 4+=Very High NITZA GRIJALVA DO 06/22/19 1056: Supervisory-Addendum Brief Verification & Attestation Participated in pt care: history, MDM, physical Personally performed: exam, history, MDM, supervision of care Care discussed with: Medical Student Procedures: n/a Results interpretation: Verified all documentation Verification and Attestation of Medical Student E/M Service A medical student performed and documented this service in my presence. I reviewed and verified all information documented by the medical student and made modifications to such information, when appropriate. I personally performed the physical exam and medical decision making. Nitza Grijalva, Jun 22, 2019,10:56 [facility] Jun 21, 2019 08:06 NITZA GRIJALVA DO Jun 22, 2019 10:56
[2019-06-21] MEDS: CARVEDILOL 6.25 MG (COREG) TAB PO SCH (08:38)
[2019-06-21] MEDS: lisINopril 5 MG (PRINIVIL) TABLET PO SCH (08:38)
[2019-06-21] MEDS: FUROSEMIDE 40 MG/4 ML INJ (LASIX) IVP SCH (08:40)
--- NOTE | 2019-06-21 10:54 | Cardiology Progress Note ---
Cardiology SOAP Progress Note Subjective: No cardiac symptoms. Objective: I&O/Vital Signs 06/20/19 06/21/19 06/21/19 06/21/19 23:29 01:00 07:00 08:00 Temp 36.8 35.9 Pulse 88 82 86 95 Resp 18 18 B/P (MAP) 131/88 (102) 148/97 (114) Pulse Ox 94 97 O2 Delivery Room Air Room Air 06/21/19 09:35 O2 Delivery Room Air 06/21/19 00:00 Intake Total 1800 ml Output Total 1525 ml Balance 275 ml Weight (Pounds): 290 Weight (Ounces): 10.0 Weight (Calculated Kilograms): 131.433491 Constitutional: appears stated age, AAO x 3; No apparent distress; well- developed, well-nourished Respiratory: chest is bilaterally symmetric, lungs clear to auscultation Cardiovascular: regular rate-rhythm, tachycardia, S1 and S2 Gastrointestional: soft, round, audible bowel sounds; No spleenomegaly Extremities: normal range of motion, non-tender, normal inspection, pedal edema; No clubbing, No cyanosis, No significant edema Neurologic/Psychiatric: no motor/sensory deficits, alert, normal mood/affect, oriented x 3, power is 5/5 both on sides Skin: normal color; No rash, No ulcerations Results/Procedures: Labs Microbiology 06/17/19 Blood Culture - Preliminary, Resulted No growth 06/17/19 MRSA Screen - Final, Complete MRSA not isolated 06/17/19 Urine Culture - Final, Complete NO GROWTH A/P: Assessment/Dx: Shortness of breath, positive cardiac enzymes, Acute systolic congestive heart failure, Severe cardiomyopathy drug abuse, Hypertension, Sinus tachycardia Plan: Non-STEMI, coronary angiography done today shows mild to moderate disease with no focal severe stenosis. Cardiomyopathy is out of proportion to CAD. Likely nonischemic cardiomyopathy. dilated nonischemic cardiomyopathy, Acute systolic congestive heart failure, IV Lasix. Echocardiogram 06/18/2019 demonstrates severe LV systolic dysfunction. Start carvedilol and lisinopril. Lifevest for primary prevention of sudden cardiac . Drug abuse, defer to the primary team. Hypertension, will follow clinically. Patient can be discharged after LifeVest. Follow-up in the office in 3-4 weeks. Thank you for your consultation. Please call me if you have any questions. Manan Maya MD, FACP, FACC, FSCAI, FHRS, CCDS Interventional Cardiology Cardiac Electrophysiology Vascular Medicine and Endovascular Interventions Ellis MAYA MD Jun 21, 2019 10:54
--- NOTE | 2019-06-21 11:05 | NUR ---
CM/SS spoke with Jonny (Katy) they are still reviewing the patient for a lifevest. They will be out this day to see the patient.
[2019-06-21] MEDS ORDERED: FURO-125 PO (12:18)
[2019-06-21] MEDS ORDERED: POTA8TAB6 PO (12:18)
[2019-06-21] MEDS ORDERED: LISI-552 PO (12:18)
[2019-06-21] MEDS ORDERED: CARV6.252 PO (12:18)
--- NOTE | 2019-06-21 15:10 | NUR ---
Pastoral care visit.
[2019-06-21 16:00] VITALS: BP 154/116
[2019-06-21 17:30] LABS: BASOPHILS # (AUTO) 0.1 10^3/uL (0.0-0.1); BASOPHILS % (AUTO) 1 % (0-10); EOSINOPHILS # (AUTO) 0.4 10^3/uL (0.0-0.3); EOSINOPHILS % (AUTO) 4 % (0-10); HEMATOCRIT 47 % (40-54); HEMOGLOBIN 15.2 G/DL (13.3-17.7); LYMPHOCYTES # (AUTO) 2.5 X 10^3 (1.0-4.0); LYMPHOCYTES % (AUTO) 25 % (12-44); MEAN CORPUSCULAR HEMOGLOBIN 28 PG (25-34); MEAN CORPUSCULAR HGB CONC 33 G/DL (32-36); MEAN CORPUSCULAR VOLUME 85 FL (80-99); MEAN PLATELET VOLUME 11.2 FL (7.4-10.4); MONOCYTES % (AUTO) 10 % (0-12); NEUTROPHILS % (AUTO) 60 % (42-75); PLATELET COUNT 248 10^3/uL (130-400); RED CELL DISTRIBUTION WIDTH 15.8 % (10.0-14.5); WHITE BLOOD COUNT 10.1 10^3/uL (4.3-11.0)
--- NOTE | 2019-06-21 18:31 | NUR ---
ZOLL JOINERY PATTERNMAKER IN ROOM TO PLACE VEST AND GIVE INSTRUCTIONS FOR USE AND CARE
[2019-06-21 18:35] VITALS: BP 154/116
[2019-06-22] MEDS ORDERED: lisINopril 20 MG (PRINIVIL) TABLET PO SCH (09:00)
--- NOTE | 2019-06-22 11:00 | Discharge Summary ---
Discharge Summary Hospital Course Was the Problem List Reviewed?: Yes Problems/Dx: (1) NSTEMI (non-ST elevated myocardial infarction) (2) CHF (congestive heart failure) Status: Acute (3) Elevated troponin Status: Acute (4) HTN (hypertension) Status: Acute (5) Hypertension Status: Chronic Qualifiers: Qualified Codes: I10 - Essential (primary) hypertension (6) Methamphetamine abuse Status: Chronic (7) Pleural effusion on right Status: Acute (8) Poison mikey Status: Acute (9) RLL pneumonia Status: Acute Qualifiers: Qualified Codes: J18.1 - Lobar pneumonia, unspecified organism (10) UTI (urinary tract infection) Status: Acute (11) Urinary tract infection Status: Acute Hospital Course Date of Admission: Jun 17, 2019 at 14:16 Admission Diagnosis : Family Physician/Provider: Mango Miller Date of Discharge: 06/22/19 Discharge Diagnosis: Right-sided pleural effusion, right-sided pneumonia, C ongestive heart failure, elevated troponin with normal cardiac catheterization, methamphetamine use, hypertension [id number] Hospital Course: Patient had an uneventful hospital course although it was lengthy which started in the ICU for right sided pleural effusion and right-sided infiltrate with pulmonary edema and congestive heart failure and elevated troponin prompting pulmonary and cardiology consultation respectively. He was stabilized blood pressure better controlled underwent cardiac catheter which was normal so the congestive heart failure and ejection fraction was 20 percent requiring the pat ient to be placed on life vest at discharge with methamphetamine cessation counseling. Labs and Pending Lab Test: Microbiology 06/17/19 Blood Culture - Preliminary, Resulted No growth 06/17/19 MRSA Screen - Final, Complete MRSA not isolated 06/17/19 Urine Culture - Final, Complete NO GROWTH Home Meds Active Potassium Chloride 8 Meq Tablet.er 8 Meq PO Q48H Lasix (Furosemide) 20 Mg Tablet 20 Mg PO DAILY Lisinopril 20 Mg Tablet 20 Mg PO DAILY@0900 Carvedilol 6.25 Mg Tablet 6.25 Mg PO BID Reported Amlodipine Besylate 10 Mg Tablet 10 Mg PO DAILY Assessment/Pt Instructions Follow-up with Dr[facility] week Discharge Planning: <30 minutes discharge planning Discharge Instructions Discharge Diet: Cardiac Diet Activity as Tolerated: Yes Discharge Physical Examination Vital Signs Vital Signs Date Time Temp Pulse Resp B/P (MAP) Pulse Ox O2 Delivery O2 Flow Rate FiO2 06/21/19 18:35 37.3 93 18 154/116 100 Room Air 1.50 06/17/19 20:20 21 General Appearance: No Apparent Distress, WD/WN Respiratory: Chest Non Tender, Lungs Clear, Normal Breath Sounds, No Accessory Muscle Use, No Respiratory Distress Cardiovascular: Regular Rate, Rhythm, No Edema, No Gallop, No JVD, No Murmur, Normal Peripheral Pulses Neurologic/Psychiatric: Alert, Oriented x3, No Motor/Sensory Deficits, Normal Mood/Affect Allergies: Coded Allergies: No Known Drug Allergies (Unverified , 10/02/15) Discharge Summary Date of Admission Jun 17, 2019 at 14:16 Date of Discharge Jun 21, 2019 at 18:50 Discharge Date: Jun 21, 2019 Admission Diagnosis Assessment: Right large pleural effusion Infiltrate RLL Meth use Mental illness Plan: ABx Dr Guzmán consultation Discharge Diagnosis Needs cath and lifevest due to decreased systolic function (1) NSTEMI (non-ST elevated myocardial infarction) (2) CHF (congestive heart failure) Status: Acute (3) Elevated troponin Status: Acute (4) HTN (hypertension) Status: Acute (5) Hypertension Status: Chronic Qualifiers: Qualified Codes: I10 - Essential (primary) hypertension (6) Methamphetamine abuse Status: Chronic (7) Pleural effusion on right Status: Acute (8) Poison mikey Status: Acute (9) RLL pneumonia Status: Acute Qualifiers: Qualified Codes: J18.1 - Lobar pneumonia, unspecified organism (10) UTI (urinary tract infection) Status: Acute (11) Urinary tract infection Status: Acute Clinical Quality Measures DVT/VTE Risk/Contraindication: Risk Factor Score Per Nursin RFS Level Per Nursing on Admit: 4+=Very High PIOTR GRIJALVA DO Jun 22, 2019 10:59
== END 2019-06-21 18:50 | disposition home or self-care (01) | DRG 280 ==
LOC: EDUNIT# 10:56 → ER 10:57 → UNDOADMIN 14:16 → ICU 14:16 → 4TH 06-18 12:48
PROVIDERS: ADMIT Internal Medicine; ATTEND Internal Medicine
PROC: 4A023N7 Measurement of Cardiac Sampling and Pressure, Left Heart, Percutaneous Approach (ICD-10-PCS; principal; 2019-06-20)
PROC: B2111ZZ Fluoroscopy of Multiple Coronary Arteries using Low Osmolar Contrast (ICD-10-PCS; 2019-06-20)
PROC: B2151ZZ Fluoroscopy of Left Heart using Low Osmolar Contrast (ICD-10-PCS; 2019-06-20)
DX: I21.4 Non-ST elevation (NSTEMI) myocardial infarction (principal); I11.0 Hypertensive heart disease with heart failure; I50.21 Acute systolic (congestive) heart failure; J18.1 Lobar pneumonia, unspecified organism; I42.9 Cardiomyopathy, unspecified; N39.0 Urinary tract infection, site not specified; J98.11 Atelectasis; F15.10 Other stimulant abuse, uncomplicated; I25.10 Atherosclerotic heart disease of native coronary artery without angina pectoris; E66.9 Obesity, unspecified; L23.7 Allergic contact dermatitis due to plants, except food; R80.9 Proteinuria, unspecified; R00.0 Tachycardia, unspecified; F99 Mental disorder, not otherwise specified; S80.811A Abrasion, right lower leg, initial encounter; S80.812A Abrasion, left lower leg, initial encounter; X58.XXXA Exposure to other specified factors, initial encounter; Z59.0 Homelessness; Z68.35 Body mass index [BMI] 35.0-35.9, adult; Z91.19 Patient's noncompliance with other medical treatment and regimen
CPT/HCPCS: 36415; 36600; 71045; 71275; 80053; 80061; 80306; 80320; 81000; 82150; 82550; 82553; 82805; 83605; 83690; 83735; 83874; 83880; 84100; 84145; 84439; 84443; 84484; 85007; 85025; 85027; 85610; 85730; 87040; 87081; 87088; 87491; 87591; 87804; 93005; 93041; 93306; 93308; 93458; 94010; 94640; 94760; 96365; 96367; 96372; 96375

== ENCOUNTER → 2019-09-18 | Outpatient (CLI) | payer OTHER ==
[~2019-09-18] MED LIST changes: +AMLO10TA7 PO; +CARV6.252 PO; +FURO-125 PO; +LISI-552 PO; +POTA8TAB6 PO
== END ==
LOC: CARD 12:08
PROVIDERS: ATTEND Internal Medicine Interventional Cardiology
DX: I25.10 Atherosclerotic heart disease of native coronary artery without angina pectoris (principal); I42.0 Dilated cardiomyopathy; I11.0 Hypertensive heart disease with heart failure; I50.42 Chronic combined systolic (congestive) and diastolic (congestive) heart failure
CPT/HCPCS: 93306